=== PATIENT | female | born 1980 | race Caucasian/White ===

== ENCOUNTER 2023-05-20 20:34 | Inpatient (IN) | payer SELFPAY ==
[2023-05-20 21:52] VITALS: BMI 26.6
[2023-05-20 22:07] VITALS: BP 136/77; PULSE 71; RESP 14; TEMP 37.3; O2SAT 99
--- NOTE | 2023-05-20 22:51 | ED.GENADULT ---
HPI - General Adult General Chief complaint: Psychiatric Symptoms Stated complaint: manic episode, verbally aggressive, section 12 pd Time Seen by Provider: 05/20/23 20:45 History of Present Illness HPI narrative: The patient is a 42-year-old woman who was brought to the hospital by ambulance under a section 12. According to the patient's father the patient was diagnosed with bipolar disorder many years ago but has never been amenable to any kind of treatment. The patient was apparently born in this area but has lived a lot in [place]. According to the patient's the the patient came up from [place] to stay with him on 02/13/2023. The patient's father reports that this is not the 1st time the patient has come to stay with him in this area. Apparently the patient's father called DCF a few weeks this the patient's father was concerned about the patient's child. The patient has a 7-year-old child who came with her from [place] to stay at the father's. The father reports that he felt that the patient was exhibiting a lot of inappropriate parenting and he contacted DCF. Apparently DCF attempted to evaluate the situation a few times and the patient refused to cooperate. Ultimately DCF arrived at the father's apartment a few days ago with police officers and the child was removed from the house. Apparently the patient became quite agitated and had to be put in handcuffs by police says the child was removed. Apparently there was a court hearing yesterday at which the patient also became quite agitated. The outcome of the court hearing was to confirm the removal of the child. Tonight the patient's father called 911 because the patient became severely agitated at home and was behaving in a very frightening manner towards the father. Police arrived. The patient apparently was agitated and seemed paranoid and delusional. Police therefore brought the patient to the hospital on a section 12. The patient states that her father is a manipulative narcissist related DCF into taking her child away. She says that she was told that the court hearing yesterday that she would have your child returned to her on Monday. The patient says that she refuses vaccines on yarsani grounds. She describes herself as ?Herbrew. She likewise refuses phlebotomy She denies fever, sweats, chills or any other symptoms of illness. She denies any drug or alcohol use. Related Data Allergies Allergy/AdvReac Type Severity Reaction Status Date / Time No Known Allergies Allergy Verified 05/20/23 23:06 Review of Systems Review of Systems: Yes all other systems are reviewed and are negative [facility] Social History Social History Advance Directives: No Advance Directives Information Provided: No Physical Exam ED Vital Signs: Vital Signs - 24 hr 05/20/23 22:07 Temperature 99.1 F Pulse Rate 71 Respiratory Rate 14 Blood Pressure 136/77 Pulse Oximetry 99 Oxygen Delivery Method Room Air BMI result Body Mass Index 26.6 Const Other: The patient is awake and alert. She perseverates about her father and DCF and the police. She was calm. HENMT Other: Face symmetrical. Mucous membranes moist. Eyes Other: Pupils are round equal, conjunctivae are clear. Neck Other: Moving her neck easily Resp Effort & Inspection: normal respiratory effort Auscultation: clear to auscultation bilaterally Cardio Rate: regular rate Rhythm: regular rhythm Heart sounds: S1 normal heart sound present and S2 normal heart sound present GI Other: Abdomen is flat soft and nontender Skin Other: The skin is dry and unremarkable Neuro Other: The patient is awake and alert. She has an intense affect with some pressured speech but her cranial nerves are intact and she moves her extremities symmetrically. No focal neurological deficit. Extrem Other: No peripheral edema Psych Other: The patient is calm. She perseverates about her father and the courts and DCF and the police conspiring against her. Medical Decision Making Medical Decision Making MDM Narrative: The patient is a 42-year-old who comes to the emergency room on a section 12. She recently had her child taken from her by [facility]. I believe [facility] was concerned about the patient's mental health interfering with her ability to parent. Tonight the patient's father called 911 because the patient was agitated and threatening. Here the patient is calm but perseverates about persecution. Patient seems medically stable. I do not have any reason to suspect that there is any underlying acute medical process and I do not have any impression that the patient is intoxicated or under the influence of any substances. The patient is refusing phlebotomy. Her vital signs are stable. She does not seem toxic in any way. I think she is medically clear for a crisis evaluation and disposition. Lab Data Labs: Lab Results 05/20/23 Range/Units 23:23 Urine Opiates Screen Not Detected (Not Detect) Urine Fentanyl Screen Not Detected (Not Detect) Ur Barbiturates Screen Not Detected (Not Detect) Ur Phencyclidine Scrn Not Detected (Not Detect) Ur Amphetamines Screen Not Detected (Not Detect) U Benzodiazepines Scrn Not Detected (Not Detect) Urine Cocaine Screen Not Detected (Not Detect) U Marijuana (THC) Screen Not Detected (Not Detect) Discharge Plan Discharge Clinical Impression: Paranoid behavior Patient Disposition: Still a Patient Interventions: Babbitt-Suicide Risk Severity Scale Last Done: 05/20/23 23:38
[2023-05-20 23:37] LABS: Amphetamine Screen Urine Not Detected (Not Detect); Barbiturates, Urine Not Detected (Not Detect); Benzodiazepines Screen Urine Not Detected (Not Detect); Cannabinoid Screen Urine Not Detected (Not Detect); Cocaine Screen Urine Not Detected (Not Detect); Fentanyl, urine Not Detected (Not Detect); Opiate Screen Urine Not Detected (Not Detect); Phencyclidine Screen Urine Not Detected (Not Detect)
[2023-05-21 01:44] LABS: UPreg QC Valid YES; Urine Pregnancy NEGATIVE (NEGATIVE)
[2023-05-21 05:14] VITALS: BP 117/71; PULSE 70; RESP 16; TEMP 37.4; O2SAT 98
--- NOTE | 2023-05-21 11:31 | PC.NURSE ---
no si/hi. asked to be changed to confidential in profile- registration changed her settings in computer. aox4. munira mann.
--- NOTE | 2023-05-21 12:30 | PC.NURSE ---
pt brought to pod. no distress. walks well. +CMS. breathing well.
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
--- NOTE | 2023-05-21 13:16 | PC.NURSE ---
Pt also verbalizes that she does not believe in medications for mental disorders . she states that the MMR vaccine and medications for mental disorders gave her relative autism
--- NOTE | 2023-05-21 13:22 | MHC.CARE ---
Patient's father is Awilda Cowanogh, or [phone]
--- NOTE | 2023-05-21 15:29 | PC.NURSE ---
Pt approached this RN to request to leave. This RN educated the patient that she cannot leave because she is on a Section 12a. Pt stated to this RN that she is being held against her will and that she does not consent to being here. This RN attempted to educate patient about a section 12a however the patient interjected and stated the section 12 article 3 is just an article and not a law so you cannot hold me here, it is just a suggestion . This Rn attempted to speak again but patient once again interjected stating you obviously don't care about my son or my safety and then returned to her room
--- NOTE | 2023-05-21 17:54 | PC.NURSE ---
this RN attempted to approach patient about drawing blood work, patient adamantly refused stating that it was against her alevism as a Korean
--- NOTE | 2023-05-21 19:24 | PC.NURSE ---
patient appears to remain at rest presently respirations are even and unlbored presently patient appears in no distress.
[2023-05-21 20:15] VITALS: BP 117/84; PULSE 83; RESP 20; TEMP 37.3; O2SAT 100
[2023-05-22 05:57] VITALS: BP 114/72; PULSE 96; RESP 15; TEMP 36.8; O2SAT 94
[2023-05-22 07:35] VITALS: RESP 16
--- NOTE | 2023-05-22 07:37 | PC.NURSE ---
PT IS A/O NO SOB/TIARRA NOTED SPEAKS IN FULL SENTENCES. PT WAS AMB (I) GAIT STEADY TO BATHROOM AND BTB. WILL CONTINUE TO MONITOR.
--- NOTE | 2023-05-22 08:00 | PC.NURSE ---
PT ADAMANTLY REFUSED TO HAVE LAB DRAWN STATING ORIENTAL ORTHODOX BELIEFS(DANISH) IS AGAINST ANY LAB DRAWS. PT STATES THAT SHE WANTS TO GET A RESTRAINING ORDER ON DCF BECAUSE THEY TOOK AWAY HER SON. WILL CONTINUE TO MONITOR.
--- NOTE | 2023-05-22 08:50 | PC.NURSE ---
PT'S MOTHER CALLED. PT REFUSED TO SPEAK WITH HER MOTHER STATING THAT SHE IS CUTTING THEM OFF .
[2023-05-22 09:28] VITALS: BP 141/96; PULSE 78; TEMP 37.6; O2SAT 97
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
[2023-05-22 16:33] VITALS: BP 136/87; PULSE 64; RESP 16; TEMP 37.6; O2SAT 97
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
[2023-05-22 19:50] VITALS: BP 120/77; PULSE 75; TEMP 36.6; O2SAT 100
[2023-05-23 08:30] VITALS: BP 133/80; PULSE 112; RESP 18; TEMP 36.7; O2SAT 100
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
[2023-05-23 18:20] VITALS: BP 122/74; PULSE 61; RESP 16; TEMP 37.2; O2SAT 98
[2023-05-24 08:08] VITALS: BP 114/61; PULSE 57; RESP 16; TEMP 37.1; O2SAT 99
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
[2023-05-24 16:44] VITALS: BP 144/75; PULSE 63; RESP 16; TEMP 37.3; O2SAT 97
[2023-05-25 08:16] VITALS: BP 115/79; PULSE 75; RESP 16; TEMP 37.2; O2SAT 99
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
== END 2023-05-25 11:53 | disposition other institution (70) | DRG 880 ==
LOC: HO.ED 05-22 14:04 → HO.PM5 05-22 14:30
PROVIDERS: Admitting Provider Psychiatry & Neurology Psychiatry; Emergency Provider Emergency Medicine; Visit Provider Psychiatry & Neurology Psychiatry
DX: F43.0 Acute stress reaction (principal); F43.10 Post-traumatic stress disorder, unspecified; F17.210 Nicotine dependence, cigarettes, uncomplicated; Z71.6 Tobacco abuse counseling
CPT/HCPCS: 80307; 81025; 99285; S9485

== ENCOUNTER → 2023-05-22 14:21 | Outpatient (BNV) | payer SELFPAY | PROVIDERS: Admitting Provider Psychiatry & Neurology Psychiatry; Emergency Provider Emergency Medicine; Visit Provider Registered Nurse | DX: F43.0 Acute stress reaction (principal); F43.11 Post-traumatic stress disorder, acute | CPT/HCPCS: 90792; 99231; 99238 ==

== ENCOUNTER 2023-07-26 15:37 | Inpatient (IN) | payer MEDICAID, OTHER, SELFPAY ==
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
[2023-07-26 16:19] VITALS: BP 125/96; BP 142/82; PULSE 77; PULSE 80; RESP 18; TEMP 36.9; O2SAT 95; O2SAT 99; BMI 22.0
[2023-07-26 16:32] LABS: Appearance Urine Turbid; Color Urine Dark Yellow; Glucose Urine UA Negative (Negative); Leukocyte Esterase Urine Small (1+) (Negative); Nitrite Urine Negative (Negative); PH 5.5 (5.0-9.0); Specific Gravity - Urine >= 1.030 (1.005-1.025); UMIC TRIGGER UACC YES; Urine Blood Large (3+) (Negative); Urine Ketones 15 mg/dL (Negative); Urine Protein 100 (2+) mg/dL (Neg-Trace)
[2023-07-26 16:40] LABS: Amphetamine Screen Urine Not Detected (Not Detect); Barbiturates, Urine Not Detected (Not Detect); Benzodiazepines Screen Urine Not Detected (Not Detect); Buprenorphine Scr Not Detected (Not Detect); Cannabinoid Screen Urine Not Detected (Not Detect); Cocaine Screen Urine Not Detected (Not Detect); Fentanyl, urine Not Detected (Not Detect); Methadone Screen, Urine Not Detected (Not Detect); Opiate Screen Urine Not Detected (Not Detect); Oxycodone Screen Urine Not Detected (Not Detect); Phencyclidine Screen Urine Not Detected (Not Detect)
[2023-07-26 16:44] VITALS: BP 125/96; PULSE 77; RESP 18; TEMP 36.9; O2SAT 99
[2023-07-26 16:52] LABS: Bacteria Urine 4+ (None Seen); RBC Urine >20 /HPF (0-2); UACC Culture Trigger YES; WBC Urine >50 /HPF (0-5)
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
--- NOTE | 2023-07-26 19:26 | PC.NURSE ---
patient somewhat withdrawn, seems appreciative for meals and assistance, periodic interactions seem reality based, patient appears in no distress.
--- NOTE | 2023-07-27 03:47 | PC.NURSE ---
Took over care from RN Carmen, pt sleeping at this time, no sign of distress.
[2023-07-27 06:21] VITALS: BP 118/58; PULSE 75; RESP 18; TEMP 37.1; O2SAT 98
[2023-07-27 08:16] VITALS: BP 119/78; PULSE 81; RESP 16; TEMP 37.2; O2SAT 97
--- NOTE | 2023-07-27 09:08 | PC.NURSE ---
pt states hoahaoism objection to blood work
--- NOTE | 2023-07-27 12:37 | PC.NURSE ---
pt refused covid test.
[2023-07-27 13:46] LABS: COVID-19 Test Negative (Negative); IDNOW Serial# 152EDE1D
[2023-07-27 14:59] VITALS: BP 119/81; PULSE 76; RESP 20; TEMP 37.1; O2SAT 97
[2023-07-27 15:18] VITALS: BMI 23.7
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
[2023-07-27 19:25] VITALS: BP 123/81; PULSE 68; RESP 16; TEMP 37.4; O2SAT 98
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
[2023-07-28 07:28] VITALS: BP 103/72; PULSE 74; RESP 16; TEMP 37.2; O2SAT 97
--- NOTE | 2023-07-28 08:02 | PC.NURSE ---
Pt refused labs. Provider aware.
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
[2023-07-28 20:45] VITALS: BP 135/85; PULSE 66; RESP 14; TEMP 37; O2SAT 97
[2023-07-29 07:20] VITALS: BP 131/74; PULSE 83; RESP 14; TEMP 37.3; O2SAT 100
--- NOTE | 2023-07-29 09:08 | HO.PSYCHPN ---
Subjective Subjective Date of Service: 07/29/23 Reason For Visit: PTSD, paranoid behavior Subjective Notes: Conditional Voluntary and 3 Day Interim History: Patient was seen and discussed in rounds today. Records and plans were reviewed. She has been refusing meds. Refusing labs. Not attending any groups. Affect is expansive. Had some difficulty falling asleep but once she was sleep she slept through. No complaints. No dangerous behaviors. No changes were made today Review of Systems Review of Systems Yes all other systems are reviewed and are negative Mental Status Exam Mental Status Exam Patient Appearance: Disheveled and Unkempt Patient Orientation: Person, Place and Situation Level of Consciousness: Awake and Restless Patient Behavior: Hyperactive, Restless and Anxious Mood Description: Suspicious, Anxious and Labile Affect Description: Labile Patient Cognition Impaired: Yes Ability to Follow Directions: Good Speech Pattern: Perseverating, Spontaneous Speech and Pressured Delusions: Paranoid Ideation Thought Process: Distracted and Rumination Thought Content: positive for Preoccupation and positive for Loose Associations Judgement: Poor Diagnostics Vital Signs (24Hr): Vital Signs - 24 hr 07/28/23 20:45 07/29/23 07:20 Temperature 98.6 F 99.2 F Pulse Rate 66 83 Respiratory Rate 14 14 Blood Pressure 135/85 131/74 Pulse Oximetry 97 100 Oxygen Delivery Method Room Air Room Air BMI result Body Mass Index 23.7 Labs Labs: Laboratory Results - last 48 hr 07/27/23 13:21 COVID-19 (LAUREEN) Negative COVID-19 Clin Com See Note Medications Medications Current Medications Al Hydroxide/Mg Hydroxide (Magnesium Hydrox/Alum Hydrox 30 Ml Oral.Susp) 30 ml PO Q6H PRN PRN Reason: Heartburn/Nausea Hydroxyzine HCl (Hydroxyzine Hcl 25 Mg Tablet) 25 mg PO Q6H PRN PRN Reason: Anxiety Magnesium Hydroxide (Milk Of Magnesia 30 Ml Oral.Susp) 30 ml PO DAILY PRN PRN Reason: Constipation Trazodone HCl (Trazodone Hcl 50 Mg Tablet) 50 mg PO BEDTIME MRX1 PRN PRN Reason: Insomnia Allergies Allergies Allergy/AdvReac Type Severity Reaction Status Date / Time seafood Allergy Hives Verified 05/21/23 13:02 venom-wasp Allergy Anaphylaxis Verified 07/26/23 16:26 pork derived (porcine) AdvReac Unknown Verified 05/21/23 13:02 Assessment & Plan Assessment & Plan (1) PTSD (post-traumatic stress disorder): Status: Acute Code(s): F43.10 - Post-traumatic stress disorder, unspecified (2) Paranoid behavior: Status: Acute Code(s): F22 - Delusional disorders Plan admit to m3 on CV pt signed 3 day notice collect collateral 07/29/2023: Continue current regimen and plans Reason for continued inpatient stay Substantial Risk for: med/psych decompensation Time Spent With Patient Time: Total time managing care of this patient today ____ minutes.
[2023-07-29 20:00] VITALS: BP 119/76; PULSE 71; RESP 14; TEMP 37.2; O2SAT 98
[2023-07-30 08:00] VITALS: BP 131/85; PULSE 74; RESP 16; TEMP 37.1; O2SAT 97
[2023-07-30 08:06] LABS: MANUAL DIFF FLAG NO
[2023-07-30 08:12] LABS: Basophils Absolute Auto 0.1 X10*3/uL (0.0-0.2); Basophils Percent Auto 0.6 % (0-2); Eosinophils Absolute Auto 0.3 X10*3/uL (0.0-0.4); Eosinophils Percent Auto 2.9 % (0-4); Hematocrit 37.5 % (37.0-47.0); Hemoglobin 12.4 g/dl (12.0-16.0); Imm Gran Abs Auto 0.03 X10*3/uL (0.00-0.03); Imm Gran Pct Auto 0.3 % (0.0-0.4); Lymphocytes Absolute Auto 1.8 X10*3/uL (1.2-4.9); Lymphocytes Percent Auto 20.2 % (20-40); Mean Corpuscular HGB Conc 33.1 g/dl (31.0-35.0); Mean Corpuscular Hemoglobin 30.6 pg (27.0-33.0); Mean Corpuscular Volume 92.6 fL (80.0-98.0); Mean Platelet Volume 10.4 fL (9.4-12.3); Monocytes Absolute Auto 0.8 X10*3/uL (0.1-1.2); Monocytes Percent Auto 9.2 % (2-11); Neutrophils Absolute Auto 5.9 x10*3/uL (2.0-8.3); Neutrophils Percent Auto 66.8 % (45-73); Platelet Count 287 X10*3/uL (160-400); Red Blood Count 4.05 X10*6/uL (4.20-5.50); Red Cell Distribution Width 14.8 % (11.0-16.0); White Blood Count 8.8 X10*3/uL (4.8-10.8)
[2023-07-30 08:36] LABS: Alanine Aminotransferase 9 U/L (0-31); Albumin Level 4.1 g/dL (3.5-5.0); Alkaline Phosphatase 70 U/L (39-117); Anion Gap 11 (12-20); Aspartate Amino Transferase 12 U/L (5-31); Bilirubin Total 0.2 mg/dL (0.0-1.0); Blood Urea Nitrogen 17 mg/dL (9-16); Carbon Dioxide 24 mmol/L (22-29); Chloride 109 mmol/L (96-108); Cholesterol 183 mg/dL (<200); Creatinine Clr Calc Pharmacy 103.4; Estimated Glomerular Filt Rate > 60; Glucose Fasting 98 mg/dL (60-99); HDL Cholesterol 39 mg/dL (>40); LDL Cholesterol Calculated 128 mg/dL (<100); Potassium 4.1 mmol/L (3.3-5.1); Sodium 140 mmol/L (135-145); Total Protein 6.9 g/dL (6.5-8.0); Triglycerides 84 mg/dL (<150)
[2023-07-30 08:51] LABS: Thyroid Stimulating Hormone 2.29 uIU/mL (0.32-4.0)
[2023-07-30 09:07] LABS: Folate 5.7 ng/mL (> or = 4.0); Vitamin B12 408 pg/mL (200-900)
--- NOTE | 2023-07-30 09:15 | HO.PSYCHPN ---
Subjective Subjective Date of Service: 07/30/23 Reason For Visit: PTSD, paranoid behavior Subjective Notes: Conditional Voluntary and 3 Day Interim History: Patient was seen and discussed in rounds today. Records and plans were reviewed. She has been visible but continues to have depression and anxiety. Eating and sleeping well. She continues to have paranoid ideations. She talked at length about her younger child who is in DCF custody and her 19-year-old who is in the [employer] and is being deployed. She does not feel that she needs to be on any medications and continues to refuse. No SI. No changes were made today Review of Systems Review of Systems Yes all other systems are reviewed and are negative Mental Status Exam Mental Status Exam Narrative: In today's visit she is alert, oriented and pleasant. Normal speech. Good eye contact. Affect is appropriate and varied. No acute signs of psychosis. Reports of paranoia and possible delusions by staff. No SI. Cognitively is grossly intact. No abnormalities of movement. She is able to move all limbs. No abnormality of gait. Diagnostics Vital Signs (24Hr): Vital Signs - 24 hr 07/29/23 20:00 07/30/23 08:00 Temperature 98.9 F 98.7 F Pulse Rate 71 74 Respiratory Rate 14 16 Blood Pressure 119/76 131/85 Pulse Oximetry 98 97 Oxygen Delivery Method Room Air Room Air BMI result Body Mass Index 23.7 Labs 07/30/23 08:00 07/30/23 08:00 Labs: Laboratory Results - last 48 hr 07/30/23 08:00 WBC 8.8 RBC 4.05 L Hgb 12.4 Hct 37.5 MCV 92.6 MCH 30.6 MCHC 33.1 RDW 14.8 Plt Count 287 MPV 10.4 Immature Gran % (Auto) 0.3 Neut % (Auto) 66.8 Lymph % (Auto) 20.2 [place] % (Auto) 9.2 Eos % (Auto) 2.9 Baso % (Auto) 0.6 Lymph # (Auto) 1.8 [place] # (Auto) 0.8 Eos # (Auto) 0.3 Baso # (Auto) 0.1 Abs Immat Gran (auto) 0.03 Absolute Neuts (auto) 5.9 Absolute Nucleated RBC 0.000 Nucleated RBC % (auto) 0.0 Sodium 140 Potassium 4.1 Chloride 109 H Carbon Dioxide 24 Anion Gap 11 L BUN 17 H Creatinine 0.70 Estim Creat Clear Calc 103.4 Estimated GFR > 60 Fasting Glucose 98 Calcium 9.0 Total Bilirubin 0.2 AST 12 ALT 9 Alkaline Phosphatase 70 Total Protein 6.9 Albumin 4.1 Triglycerides 84 Cholesterol 183 LDL Cholesterol, Calc 128 H HDL Cholesterol 39 L Vitamin B12 408 Folate 5.7 TSH 2.29 Free T4 1.00 Medications Medications Current Medications Al Hydroxide/Mg Hydroxide (Magnesium Hydrox/Alum Hydrox 30 Ml Oral.Susp) 30 ml PO Q6H PRN PRN Reason: Heartburn/Nausea Hydroxyzine HCl (Hydroxyzine Hcl 25 Mg Tablet) 25 mg PO Q6H PRN PRN Reason: Anxiety Magnesium Hydroxide (Milk Of Magnesia 30 Ml Oral.Susp) 30 ml PO DAILY PRN PRN Reason: Constipation Trazodone HCl (Trazodone Hcl 50 Mg Tablet) 50 mg PO BEDTIME MRX1 PRN PRN Reason: Insomnia Allergies Allergies Allergy/AdvReac Type Severity Reaction Status Date / Time seafood Allergy Hives Verified 05/21/23 13:02 venom-wasp Allergy Anaphylaxis Verified 07/26/23 16:26 pork derived (porcine) AdvReac Unknown Verified 05/21/23 13:02 Assessment & Plan Assessment & Plan (1) PTSD (post-traumatic stress disorder): Status: Acute Code(s): F43.10 - Post-traumatic stress disorder, unspecified (2) Paranoid behavior: Status: Acute Code(s): F22 - Delusional disorders Plan admit to m3 on CV pt signed 3 day notice collect collateral 07/29/2023: Continue current regimen and plans 07/30/2023: Continue current regimen and plans Patient educated on: medication risk/benefits Reason for continued inpatient stay Substantial Risk for: med/psych decompensation Time Spent With Patient Time: Total time managing care of this patient today ____ minutes.
[2023-07-30 20:00] VITALS: BP 108/60; PULSE 67; RESP 16; TEMP 37.3; O2SAT 98
[2023-07-30] MEDS: hydrOXYzine HCL 25 MG TABLET PO (22:53)
[2023-07-31 07:45] VITALS: BP 122/71; PULSE 60; RESP 16; TEMP 36.8; O2SAT 97
--- NOTE | 2023-07-31 14:41 | HO.PSYCHPN ---
Subjective Subjective Date of Service: 07/31/23 Reason For Visit: PTSD, paranoid behavior Interim History: slightly pressured, grandiose delusions, protestant preoccupation. pleasant. denying she has mental illness, won't take medications. upset her son has been removed from her custody, on principle will not try medications to satisfy the concerns of those who believe she has mental illness. informs pt she will be offered medication but will not be forced medication at the moment. discuss 3-day notice, kay warning provided. per staff, 3-day up 08/01. paranoid, cheerful, bright. attending groups. loose, disorganized. believes automobile radio repairer and DCF are in on removing her child and that they in general sell and abuse kids. believes her son is a prophet. Mental Status Exam Mental Status Exam Narrative: alert, oriented and pleasant. slightly pressured speech, normal loudness. Good eye contact. Affect is somewhat hyper-intense and euphoric. paranoid and grandiose delusions. No SI/HI/AVH expressed. Cognitively is grossly intact. No abnormalities of movement. She is able to move all limbs. No abnormality of gait. Diagnostics Vital Signs (24Hr): Vital Signs - 24 hr 07/30/23 20:00 07/31/23 07:45 Temperature 99.1 F 98.3 F Pulse Rate 67 60 Respiratory Rate 16 16 Blood Pressure 108/60 122/71 Pulse Oximetry 98 97 Oxygen Delivery Method Room Air Room Air BMI result Body Mass Index 23.7 Labs 07/30/23 08:00 07/30/23 08:00 Labs: Laboratory Results - last 48 hr 07/30/23 08:00 WBC 8.8 RBC 4.05 L Hgb 12.4 Hct 37.5 MCV 92.6 MCH 30.6 MCHC 33.1 RDW 14.8 Plt Count 287 MPV 10.4 Immature Gran % (Auto) 0.3 Neut % (Auto) 66.8 Lymph % (Auto) 20.2 [place] % (Auto) 9.2 Eos % (Auto) 2.9 Baso % (Auto) 0.6 Lymph # (Auto) 1.8 [place] # (Auto) 0.8 Eos # (Auto) 0.3 Baso # (Auto) 0.1 Abs Immat Gran (auto) 0.03 Absolute Neuts (auto) 5.9 Absolute Nucleated RBC 0.000 Nucleated RBC % (auto) 0.0 Sodium 140 Potassium 4.1 Chloride 109 H Carbon Dioxide 24 Anion Gap 11 L BUN 17 H Creatinine 0.70 Estim Creat Clear Calc 103.4 Estimated GFR > 60 Fasting Glucose 98 Calcium 9.0 Total Bilirubin 0.2 AST 12 ALT 9 Alkaline Phosphatase 70 Total Protein 6.9 Albumin 4.1 Triglycerides 84 Cholesterol 183 LDL Cholesterol, Calc 128 H HDL Cholesterol 39 L Vitamin B12 408 Folate 5.7 TSH 2.29 Free T4 1.00 Medications Medications Current Medications Al Hydroxide/Mg Hydroxide (Magnesium Hydrox/Alum Hydrox 30 Ml Oral.Susp) 30 ml PO Q6H PRN PRN Reason: Heartburn/Nausea Hydroxyzine HCl (Hydroxyzine Hcl 25 Mg Tablet) 25 mg PO Q6H PRN PRN Reason: Anxiety Last Admin: 07/30/23 22:53 Dose: 25 mg Magnesium Hydroxide (Milk Of Magnesia 30 Ml Oral.Susp) 30 ml PO DAILY PRN PRN Reason: Constipation Olanzapine (Olanzapine 10 Mg Tablet) 10 mg PO BEDTIME FREDO Trazodone HCl (Trazodone Hcl 50 Mg Tablet) 50 mg PO BEDTIME MRX1 PRN PRN Reason: Insomnia Allergies Allergies Allergy/AdvReac Type Severity Reaction Status Date / Time seafood Allergy Hives Verified 05/21/23 13:02 venom-wasp Allergy Anaphylaxis Verified 07/26/23 16:26 pork derived (porcine) AdvReac Unknown Verified 05/21/23 13:02 Assessment & Plan Assessment & Plan (1) PTSD (post-traumatic stress disorder): Status: Acute Code(s): F43.10 - Post-traumatic stress disorder, unspecified (2) Paranoid behavior: Status: Acute Code(s): F22 - Delusional disorders Plan admit to m3 on CV pt signed 3 day notice collect collateral 07/29/2023: Continue current regimen and plans 07/30/2023: Continue current regimen and plans 07/30: offer olanzapine at HS. pt remains manic, with pressured speech, thought disorganization, paranoid and grandiose delusions. Reason for continued inpatient stay Substantial Risk for: inability to function Time Spent With Patient Time: Total time managing care of this patient today __35__ minutes.
[2023-07-31 20:00] VITALS: BP 124/60; PULSE 71; RESP 16; TEMP 37.7; O2SAT 97
[2023-07-31] MEDS: hydrOXYzine HCL 25 MG TABLET PO (22:26)
[2023-08-01 07:59] VITALS: BP 129/74; PULSE 68; RESP 16; TEMP 36.8; O2SAT 99
--- NOTE | 2023-08-01 10:34 | P.DS_ITS ---
DS: Providers Provider Date of Service: 08/01/23 Date of admission: 07/27/23 13:51 Primary care physician: None Physician DS: Diagnosis Discharge Diagnosis (1) PTSD (post-traumatic stress disorder): Status: Acute (2) Paranoid behavior: Status: Acute DS: Medications Discharge Medications Home Medications: Home Medications ?Medication ?Instructions ?Recorded ?Confirmed No Known Home Meds 05/21/23 07/26/23 Data Data Completed and Pending Completed studies during hospitalization [Text1]: 07/26/23 07/27/23 07/30/23 16:03 13:21 08:00 WBC 8.8 RBC 4.05 L Hgb 12.4 Hct 37.5 MCV 92.6 MCH 30.6 MCHC 33.1 RDW 14.8 Plt Count 287 MPV 10.4 Immature Gran % (Auto) 0.3 Neut % (Auto) 66.8 Lymph % (Auto) 20.2 [place] % (Auto) 9.2 Eos % (Auto) 2.9 Baso % (Auto) 0.6 Lymph # (Auto) 1.8 [place] # (Auto) 0.8 Eos # (Auto) 0.3 Baso # (Auto) 0.1 Abs Immat Gran (auto) 0.03 Absolute Neuts (auto) 5.9 Absolute Nucleated RBC 0.000 Nucleated RBC % (auto) 0.0 Sodium 140 Potassium 4.1 Chloride 109 H Carbon Dioxide 24 Anion Gap 11 L BUN 17 H Creatinine 0.70 Estim Creat Clear Calc 103.4 Estimated GFR > 60 Fasting Glucose 98 Calcium 9.0 Total Bilirubin 0.2 AST 12 ALT 9 Alkaline Phosphatase 70 Total Protein 6.9 Albumin 4.1 Triglycerides 84 Cholesterol 183 LDL Cholesterol, Calc 128 H HDL Cholesterol 39 L Vitamin B12 408 Folate 5.7 TSH 2.29 Free T4 1.00 Urine Color Dark Yellow Urine Appearance Turbid Urine pH 5.5 Ur Specific [place] >= 1.030 H Urine Protein 100 (2+) H Urine Glucose (UA) Negative Urine Ketones 15 Urine Blood Large (3+) H Urine Nitrite Negative Ur Leukocyte Esterase Small (1+) H Urine RBC >20 H Urine WBC >50 H Ur Squamous Epith Cells 11-20 Urine Bacteria 4+ Hyaline Casts 11-20 Urine Opiates Screen Not Detected Ur Buprenorphine Scrn Not Detected Ur Oxycodone Screen Not Detected Urine Methadone Screen Not Detected Urine Fentanyl Screen Not Detected Ur Barbiturates Screen Not Detected Ur Phencyclidine Scrn Not Detected Ur Amphetamines Screen Not Detected U Benzodiazepines Scrn Not Detected Urine Cocaine Screen Not Detected U Marijuana (THC) Screen Not Detected COVID-19 (LAUREEN) Negative COVID-19 Clin Com See Note 07/26/23 16:52 Urine clean catch - Urine ann top Urine Culture - Final DS: Summary Time Spent with Patient Time attestation: Total time managing care of this patient today ____ minutes. Discharge Plan Discharge Anticipated Discharge Date/Time: 08/02/23 11:30 Patient Disposition: [facility] Discharge Diagnosis: Manic Episode PTSD, Chronic Referrals: [facility] [Provider Group] - 1 Week Discharge Medications: No Action No Known Home Meds Diet: Advance to usual diet Activity on Discharge: As tolerated Stand Alone Forms: Patient Portal Discharge page Print Language: Iranian Care Plan Goals: achieve safety and stability in the outpatient treatment setting Health Concerns: none Plan of Treatment: establish a relationship with a therapist in the community for supportive psychotherapy. Assessment: not at imminent risk of harm to self or others
[2023-08-01 11:24] LABS: COVID-19 Test Negative (Negative); IDNOW Serial# 08D9AD1C
[2023-08-01 21:37] VITALS: BP 117/57; PULSE 69; RESP 16; TEMP 36.9; O2SAT 98
[2023-08-01] MEDS: hydrOXYzine HCL 25 MG TABLET PO (21:49)
[2023-08-02 07:44] VITALS: BP 114/60; PULSE 87; RESP 14; TEMP 36.9; O2SAT 98
[2023-08-02] MEDS: Divalproex Sodium ER 500 MG TAB.ER.24H PO ×2 (11:15→20:40)
[2023-08-02] MEDS: OLANZapine 5 MG TABLET PO (11:15)
--- NOTE | 2023-08-02 14:36 | HO.PSYCHPN ---
Subjective Subjective Date of Service: 08/01/23 Reason For Visit: PTSD, paranoid behavior Interim History: states she has no mental illness and declines to take medications. discussed need to discharge tomorrow, in that case. plan made for the same. Mental Status Exam Mental Status Exam Narrative: alert, oriented and pleasant. slightly pressured speech, normal loudness. Good eye contact. Affect is somewhat hyper-intense, labile, tearful. paranoid and grandiose delusions. mood sad because of what's happening to me and [place]. No SI/HI/AVH. Cognitively is grossly intact. No abnormalities of movement. She is able to move all limbs. No abnormality of gait. Diagnostics Vital Signs (24Hr): Vital Signs - 24 hr 08/01/23 21:37 08/02/23 07:44 Temperature 98.5 F 98.5 F Pulse Rate 69 87 Respiratory Rate 16 14 Blood Pressure 117/57 L 114/60 Pulse Oximetry 98 98 Oxygen Delivery Method Room Air Room Air BMI result Body Mass Index 23.7 Labs 07/30/23 08:00 07/30/23 08:00 Labs: Laboratory Results - last 48 hr 08/01/23 10:43 COVID-19 ([facility]EN) Negative COVID-19 Clin Com See Note Medications Medications Current Medications Al Hydroxide/Mg Hydroxide (Magnesium Hydrox/Alum Hydrox 30 Ml Oral.Susp) 30 ml PO Q6H PRN PRN Reason: Heartburn/Nausea Divalproex Sodium (Divalproex Sodium Er 500 Mg Tab.Er.24h) 500 mg PO BID [facility] Last Admin: 08/02/23 11:15 Dose: 500 mg Hydroxyzine HCl (Hydroxyzine Hcl 25 Mg Tablet) 25 mg PO Q6H PRN PRN Reason: Anxiety Last Admin: 08/01/23 21:49 Dose: 25 mg Magnesium Hydroxide (Milk Of Magnesia 30 Ml Oral.Susp) 30 ml PO DAILY PRN PRN Reason: Constipation Olanzapine (Olanzapine 10 Mg Tablet) 10 mg PO BEDTIME [facility] Last Admin: 08/01/23 21:28 Dose: Not Given Trazodone HCl (Trazodone Hcl 50 Mg Tablet) 50 mg PO BEDTIME MRX1 PRN PRN Reason: Insomnia Allergies Allergies Allergy/AdvReac Type Severity Reaction Status Date / Time seafood Allergy Hives Verified 05/21/23 13:02 venom-wasp Allergy Anaphylaxis Verified 07/26/23 16:26 pork derived (porcine) AdvReac Unknown Verified 05/21/23 13:02 Assessment & Plan Assessment & Plan (1) PTSD (post-traumatic stress disorder): Status: Acute Code(s): F43.10 - Post-traumatic stress disorder, unspecified (2) Paranoid behavior: Status: Acute Code(s): F22 - Delusional disorders Plan admit to m3 on CV pt signed 3 day notice collect collateral 07/29/2023: Continue current regimen and plans 07/30/2023: Continue current regimen and plans 07/30: offer olanzapine at HS. pt remains manic, with pressured speech, thought disorganization, paranoid and grandiose delusions. 07/31: refused medication last night. will discharge tomorrow, plan made. Reason for continued inpatient stay Substantial Risk for: inability to function Time Spent With Patient Time: Total time managing care of this patient today __35__ minutes.
--- NOTE | 2023-08-02 14:40 | HO.PSYCHPN ---
Subjective Subjective Date of Service: 08/02/23 Reason For Visit: PTSD, paranoid behavior Interim History: pt rescinded her 3-day notice and is asking to remain in the hospital. reports having had a dream last night where she was murdered after having left the hospital. discussed with pt that the only treatment we can offer her here is medications, and if she is not taking medications we cannot keep her here any longer (her primary concern appears to be housing right now). after much deliberation and denial of mental illness, pt agrees to take medication this morning. per staff, wants to remain in the hospital. Mental Status Exam Mental Status Exam Narrative: alert, oriented and pleasant. slightly pressured speech, normal loudness. Good eye contact. Affect is somewhat hyper-intense, non-labile. paranoid and grandiose delusions. mood not assessed. No SI/HI/AVH expressed. Cognitively is grossly intact. No abnormalities of movement. She is able to move all limbs. No abnormality of gait. Diagnostics Vital Signs (24Hr): Vital Signs - 24 hr 08/01/23 21:37 08/02/23 07:44 Temperature 98.5 F 98.5 F Pulse Rate 69 87 Respiratory Rate 16 14 Blood Pressure 117/57 L 114/60 Pulse Oximetry 98 98 Oxygen Delivery Method Room Air Room Air BMI result Body Mass Index 23.7 Labs 07/30/23 08:00 07/30/23 08:00 Labs: Laboratory Results - last 48 hr 08/01/23 10:43 COVID-19 ([facility]) Negative COVID-19 Clin Com See Note Medications Medications Current Medications Al Hydroxide/Mg Hydroxide (Magnesium Hydrox/Alum Hydrox 30 Ml Oral.Susp) 30 ml PO Q6H PRN PRN Reason: Heartburn/Nausea Divalproex Sodium (Divalproex Sodium Er 500 Mg Tab.Er.24h) 500 mg PO BID FREDO Last Admin: 08/02/23 11:15 Dose: 500 mg Hydroxyzine HCl (Hydroxyzine Hcl 25 Mg Tablet) 25 mg PO Q6H PRN PRN Reason: Anxiety Last Admin: 08/01/23 21:49 Dose: 25 mg Magnesium Hydroxide (Milk Of Magnesia 30 Ml Oral.Susp) 30 ml PO DAILY PRN PRN Reason: Constipation Olanzapine (Olanzapine 10 Mg Tablet) 10 mg PO BEDTIME FREDO Last Admin: 04/23/24 21:28 Dose: Not Given Trazodone HCl (Trazodone Hcl 50 Mg Tablet) 50 mg PO BEDTIME MRX1 PRN PRN Reason: Insomnia Allergies Allergies Allergy/AdvReac Type Severity Reaction Status Date / Time seafood Allergy Hives Verified 05/21/23 13:02 venom-wasp Allergy Anaphylaxis Verified 07/26/23 16:26 pork derived (porcine) AdvReac Unknown Verified 05/21/23 13:02 Assessment & Plan Assessment & Plan (1) PTSD (post-traumatic stress disorder): Status: Acute Code(s): F43.10 - Post-traumatic stress disorder, unspecified (2) Paranoid behavior: Status: Acute Code(s): F22 - Delusional disorders Plan admit to m3 on CV pt signed 3 day notice collect collateral 07/29/2023: Continue current regimen and plans 07/30/2023: Continue current regimen and plans 07/30: offer olanzapine at HS. pt remains manic, with pressured speech, thought disorganization, paranoid and grandiose delusions. 07/31: refused medication last night. will discharge tomorrow, plan made. 08/01: rescinded 3-day notice and asked to remain in hospital. stated willing to take meds, accepted VPA and zyprexa this morning. Reason for continued inpatient stay Substantial Risk for: inability to function Time Spent With Patient Time: Total time managing care of this patient today __35__ minutes.
[2023-08-02 20:00] VITALS: BP 125/73; PULSE 74; RESP 16; TEMP 36.6; O2SAT 97
[2023-08-02] MEDS: OLANZapine 10 MG TABLET PO (20:40)
[2023-08-03 07:00] VITALS: BMI 25.5
[2023-08-03] MEDS: Divalproex Sodium ER 500 MG TAB.ER.24H PO (08:34)
--- NOTE | 2023-08-03 13:16 | HO.PSYCHPN ---
Subjective Subjective Date of Service: 08/03/23 Reason For Visit: PTSD, paranoid behavior Interim History: more calm, less wordy, less intense. no s/e from medications. per staff, retracted 3-day yesterday. started meds. slept 8 hours. Mental Status Exam Mental Status Exam Narrative: alert, oriented and pleasant. normal speech. Good eye contact. Affect is normo-intense, non-labile. paranoid delusions. mood not assessed. No SI/HI/AVH expressed. Cognitively is grossly intact. No abnormalities of movement. She is able to move all limbs. No abnormality of gait. Diagnostics Vital Signs (24Hr): Vital Signs - 24 hr 08/02/23 20:00 Temperature 98 F Pulse Rate 74 Respiratory Rate 16 Blood Pressure 125/73 Pulse Oximetry 97 Oxygen Delivery Method Room Air BMI result Body Mass Index 23.7 Labs 07/30/23 08:00 07/30/23 08:00 Medications Medications Current Medications Al Hydroxide/Mg Hydroxide (Magnesium Hydrox/Alum Hydrox 30 Ml Oral.Susp) 30 ml PO Q6H PRN PRN Reason: Heartburn/Nausea Divalproex Sodium (Divalproex Sodium Er 500 Mg Tab.Er.24h) 1,000 mg PO BEDTIME FREDO Hydroxyzine HCl (Hydroxyzine Hcl 25 Mg Tablet) 25 mg PO Q6H PRN PRN Reason: Anxiety Last Admin: 08/01/23 21:49 Dose: 25 mg Magnesium Hydroxide (Milk Of Magnesia 30 Ml Oral.Susp) 30 ml PO DAILY PRN PRN Reason: Constipation Olanzapine (Olanzapine 5 Mg Tablet) 5 mg PO BEDTIME FREDO Trazodone HCl (Trazodone Hcl 50 Mg Tablet) 50 mg PO BEDTIME MRX1 PRN PRN Reason: Insomnia Allergies Allergies Allergy/AdvReac Type Severity Reaction Status Date / Time seafood Allergy Hives Verified 05/21/23 13:02 venom-wasp Allergy Anaphylaxis Verified 07/26/23 16:26 pork derived (porcine) AdvReac Unknown Verified 05/21/23 13:02 Assessment & Plan Assessment & Plan (1) Bipolar I disorder with guido: Status: Acute Code(s): F31.10 - Bipolar disorder, current episode manic without psychotic features, unspecified (2) PTSD (post-traumatic stress disorder): Status: Acute Code(s): F43.10 - Post-traumatic stress disorder, unspecified Plan admit to m3 on CV pt signed 3 day notice collect collateral 07/29/2023: Continue current regimen and plans 07/30/2023: Continue current regimen and plans 07/30: offer olanzapine at HS. pt remains manic, with pressured speech, thought disorganization, paranoid and grandiose delusions. 07/31: refused medication last night. will discharge tomorrow, plan made. 08/01: rescinded 3-day notice and asked to remain in hospital. stated willing to take meds, accepted VPA and zyprexa this morning. 08/02: med-compliant, notably slower today, calmer, not pressured or grandiose. no s/e. continue current mgmt. Reason for continued inpatient stay Substantial Risk for: inability to function and rapid decompensation Time Spent With Patient Time: Total time managing care of this patient today __25__ minutes.
[2023-08-03 13:30] VITALS: BP 120/68; PULSE 69; RESP 18; TEMP 38.1; O2SAT 98
[2023-08-03 15:28] LABS: COVID-19 Test Negative (Negative); IDNOW Serial# 58CA691E
[2023-08-03 20:00] VITALS: BP 134/63; PULSE 76; RESP 18; TEMP 37.1; O2SAT 99
[2023-08-03] MEDS: Divalproex Sodium ER 500 MG TAB.ER.24H 1000 MG PO (20:56)
[2023-08-03] MEDS: OLANZapine 5 MG TABLET PO (20:57)
[2023-08-04 07:25] VITALS: BP 116/55; PULSE 67; RESP 16; TEMP 36.7; O2SAT 95
--- NOTE | 2023-08-04 14:24 | HO.PSYCHPN ---
Subjective Subjective Date of Service: 08/04/23 Reason For Visit: PTSD, paranoid behavior Interim History: calm, cooperative, less pressured but still hyperverbal. feeling less groggy today than yesterday. amenable to continue current mgmt. per staff, taking meds. COVID NEG. eating well. Mental Status Exam Mental Status Exam Narrative: alert, oriented and pleasant. incr rate and amount of speech. Good eye contact. Affect is normo-intense, non-labile. no paranoid delusions expressed. mood not assessed. No SI/HI/AVH expressed. Cognitively is grossly intact. No abnormalities of movement. She is able to move all limbs. No abnormality of gait. Diagnostics Vital Signs (24Hr): Vital Signs - 24 hr 08/03/23 20:00 08/04/23 07:25 Temperature 98.7 F 98.0 F Pulse Rate 76 67 Respiratory Rate 18 16 Blood Pressure 134/63 116/55 L Pulse Oximetry 99 95 Oxygen Delivery Method Room Air Room Air BMI result Body Mass Index 25.5 Labs 07/30/23 08:00 07/30/23 08:00 Labs: Laboratory Results - last 48 hr 08/03/23 14:57 COVID-19 ([facility]) Negative COVID-19 Clin Com See Note Medications Medications Current Medications Al Hydroxide/Mg Hydroxide (Magnesium Hydrox/Alum Hydrox 30 Ml Oral.Susp) 30 ml PO Q6H PRN PRN Reason: Heartburn/Nausea Divalproex Sodium (Divalproex Sodium Er 500 Mg Tab.Er.24h) 1,000 mg PO BEDTIME FREDO Last Admin: 08/03/23 20:56 Dose: 1,000 mg Hydroxyzine HCl (Hydroxyzine Hcl 25 Mg Tablet) 25 mg PO Q6H PRN PRN Reason: Anxiety Last Admin: 08/01/23 21:49 Dose: 25 mg Magnesium Hydroxide (Milk Of Magnesia 30 Ml Oral.Susp) 30 ml PO DAILY PRN PRN Reason: Constipation Olanzapine (Olanzapine 5 Mg Tablet) 5 mg PO BEDTIME FREDO Last Admin: 08/03/23 20:57 Dose: 5 mg Trazodone HCl (Trazodone Hcl 50 Mg Tablet) 50 mg PO BEDTIME MRX1 PRN PRN Reason: Insomnia Allergies Allergies Allergy/AdvReac Type Severity Reaction Status Date / Time seafood Allergy Hives Verified 05/21/23 13:02 venom-wasp Allergy Anaphylaxis Verified 07/26/23 16:26 pork derived (porcine) AdvReac Unknown Verified 05/21/23 13:02 Assessment & Plan Assessment & Plan (1) Bipolar I disorder with guido: Status: Acute Code(s): F31.10 - Bipolar disorder, current episode manic without psychotic features, unspecified (2) PTSD (post-traumatic stress disorder): Status: Acute Code(s): F43.10 - Post-traumatic stress disorder, unspecified Plan admit to m3 on CV pt signed 3 day notice collect collateral 07/29/2023: Continue current regimen and plans 07/30/2023: Continue current regimen and plans 07/30: offer olanzapine at HS. pt remains manic, with pressured speech, thought disorganization, paranoid and grandiose delusions. 07/31: refused medication last night. will discharge tomorrow, plan made. 08/01: rescinded 3-day notice and asked to remain in hospital. stated willing to take meds, accepted VPA and zyprexa this morning. 08/02: med-compliant, notably slower today, calmer, not pressured or grandiose. no s/e. continue current mgmt. 08/03: more rapid speech today and more affective expression with zyprexa dose decrease last night. no paranoid delusions expressed, however. trending improved. continue current mgmt. titrate zyprexa to 7.5 mg over w/e as indicated. Reason for continued inpatient stay Substantial Risk for: inability to function and rapid decompensation Time Spent With Patient Time: Total time managing care of this patient today __25__ minutes.
[2023-08-04 19:15] VITALS: BP 129/64; PULSE 78; RESP 18; TEMP 38.2; O2SAT 97
[2023-08-04] MEDS: OLANZapine 5 MG TABLET PO (21:35)
[2023-08-04] MEDS: Divalproex Sodium ER 500 MG TAB.ER.24H 1000 MG PO (21:35)
[2023-08-04 21:54] VITALS: TEMP 37.1
[2023-08-05 09:20] VITALS: BP 129/60; PULSE 82; RESP 16; TEMP 37.2; O2SAT 100
--- NOTE | 2023-08-05 13:46 | HO.PSYCHPN ---
Subjective Subjective Date of Service: 08/05/23 Reason For Visit: PTSD, paranoid behavior Subjective Notes: Conditional Voluntary Interim History: Pt continues to present with congregational and paranoid delusions. She reports she is wrongly diagnosis with paranoia and she will not agree to that but knows has to continue tx. She reports sleeping well. She reports missing her son and worried that son is being hurt. Pt denies SI/HI. She has been visible on the unit, social with select peers. Review of Systems Review of Systems Constitutional : No Weight loss, No Fever, No Chills, No Night Sweats, No Fatigue, No Malaise ENT/Mouth : No Hearing loss, No Ear Pain, No Nasal Congestion, No Sinus Pain, No Hoarseness, No sore throat, No Rhinorrhea, No Swallowing Difficulty Eyes: No Eye Pain, No Swelling, No Redness, No Foreign Body, No Discharge, No Vision Changes Cardiovascular : No Chest Pain, No SOB, No Dyspnea on Exertion, No Orthopnea, No Edema, No Palpitations Respiratory : No Cough, No Sputum, No Wheezing, No Smoke Exposure, No Dyspnea Gastrointestinal : No Nausea, No Vomiting, No Diarrhea, No Constipation, No abdominal Pain, No Hematochezia, No Melena Genitourinary : no irregular bleeding, No Dysuria, No Urinary Frequency, No Hematuria, No Urinary Incontinence, No Urgency, No Flank Pain, No Urinary Flow Changes, No Hesitancy Musculoskeletal : No joint pain, No Myalgias, No Joint Swelling Skin : No Skin Lesions, No rash Neuro : No Weakness, No Numbness, No Paresthesias, No Loss of Consciousness, No Dizziness, No Headache Psych : No Anxiety/Panic, No Depression, patient denies SI or HI, angry that she was brought on a Section 12 Heme/Lymph: No Bruising, No Bleeding,No Lymphadenopathy Endocrine : No Polyuria, No Polydipsia, No Temperature Intolerance Yes all other systems are reviewed and are negative Mental Status Exam Mental Status Exam Narrative: alert, oriented and pleasant. incr rate and amount of speech. Good eye contact. Affect is normo-intense, non-labile. no paranoid delusions expressed. mood not assessed. No SI/HI/AVH expressed. Cognitively is grossly intact. No abnormalities of movement. She is able to move all limbs. No abnormality of gait. Diagnostics Vital Signs (24Hr): Vital Signs - 24 hr 08/04/23 19:15 08/04/23 21:54 08/05/23 09:20 Temperature 100.7 F H 98.7 F 98.9 F Pulse Rate 78 82 Respiratory Rate 18 16 Blood Pressure 129/64 129/60 Pulse Oximetry 97 100 Oxygen Delivery Method Room Air Room Air BMI result Body Mass Index 25.5 Labs 07/30/23 08:00 07/30/23 08:00 Labs: Laboratory Results - last 48 hr 08/03/23 14:57 COVID-19 ([facility]) Negative COVID-19 Clin Com See Note Medications Medications Current Medications Al Hydroxide/Mg Hydroxide (Magnesium Hydrox/Alum Hydrox 30 Ml Oral.Susp) 30 ml PO Q6H PRN PRN Reason: Heartburn/Nausea Divalproex Sodium (Divalproex Sodium Er 500 Mg Tab.Er.24h) 1,000 mg PO BEDTIME FREDO Last Admin: 08/04/23 21:35 Dose: 1,000 mg Hydroxyzine HCl (Hydroxyzine Hcl 25 Mg Tablet) 25 mg PO Q6H PRN PRN Reason: Anxiety Last Admin: 08/01/23 21:49 Dose: 25 mg Magnesium Hydroxide (Milk Of Magnesia 30 Ml Oral.Susp) 30 ml PO DAILY PRN PRN Reason: Constipation Olanzapine (Olanzapine 5 Mg Tablet) 5 mg PO BEDTIME FREDO Last Admin: 08/04/23 21:35 Dose: 5 mg Trazodone HCl (Trazodone Hcl 50 Mg Tablet) 50 mg PO BEDTIME MRX1 PRN PRN Reason: Insomnia Allergies Allergies Allergy/AdvReac Type Severity Reaction Status Date / Time seafood Allergy Hives Verified 05/21/23 13:02 venom-wasp Allergy Anaphylaxis Verified 07/26/23 16:26 pork derived (porcine) AdvReac Unknown Verified 05/21/23 13:02 Assessment & Plan Assessment & Plan (1) Bipolar I disorder with guido: Status: Acute Code(s): F31.10 - Bipolar disorder, current episode manic without psychotic features, unspecified (2) PTSD (post-traumatic stress disorder): Status: Acute Code(s): F43.10 - Post-traumatic stress disorder, unspecified Plan admit to m3 on CV pt signed 3 day notice collect collateral 07/29/2023: Continue current regimen and plans 07/30/2023: Continue current regimen and plans 07/30: offer olanzapine at HS. pt remains manic, with pressured speech, thought disorganization, paranoid and grandiose delusions. 07/31: refused medication last night. will discharge tomorrow, plan made. 08/01: rescinded 3-day notice and asked to remain in hospital. stated willing to take meds, accepted VPA and zyprexa this morning. 08/02: med-compliant, notably slower today, calmer, not pressured or grandiose. no s/e. continue current mgmt. 08/03: more rapid speech today and more affective expression with zyprexa dose decrease last night. no paranoid delusions expressed, however. trending improved. continue current mgmt. titrate zyprexa to 7.5 mg over w/e as indicated. 08/04 continue tx. Reason for continued inpatient stay Substantial Risk for: inability to function Time Spent With Patient Time: Total time managing care of this patient today ____ minutes.
[2023-08-05 20:00] VITALS: BP 121/57; PULSE 77; RESP 16; TEMP 37.6; O2SAT 97
[2023-08-05] MEDS: Divalproex Sodium ER 500 MG TAB.ER.24H 1000 MG PO (20:58)
[2023-08-05] MEDS: OLANZapine 5 MG TABLET PO (20:58)
[2023-08-06 07:40] VITALS: BP 121/64; PULSE 65; RESP 18; TEMP 36.9; O2SAT 97
--- NOTE | 2023-08-06 14:54 | HO.PSYCHPN ---
Subjective Subjective Date of Service: 08/06/23 Reason For Visit: PTSD, paranoid behavior Subjective Notes: Conditional Voluntary Interim History: Pt slept most of the night. Pt continues to present with adventism and paranoid delusions. She reports she is wrongly diagnosis with paranoia and she will not agree to that but knows has to continue tx. She reports sleeping well. She reports missing her son and worried that son is being hurt. Pt denies SI/HI. She has been visible on the unit, social with select peers. Review of Systems Review of Systems Constitutional : No Weight loss, No Fever, No Chills, No Night Sweats, No Fatigue, No Malaise ENT/Mouth : No Hearing loss, No Ear Pain, No Nasal Congestion, No Sinus Pain, No Hoarseness, No sore throat, No Rhinorrhea, No Swallowing Difficulty Eyes: No Eye Pain, No Swelling, No Redness, No Foreign Body, No Discharge, No Vision Changes Cardiovascular : No Chest Pain, No SOB, No Dyspnea on Exertion, No Orthopnea, No Edema, No Palpitations Respiratory : No Cough, No Sputum, No Wheezing, No Smoke Exposure, No Dyspnea Gastrointestinal : No Nausea, No Vomiting, No Diarrhea, No Constipation, No abdominal Pain, No Hematochezia, No Melena Genitourinary : no irregular bleeding, No Dysuria, No Urinary Frequency, No Hematuria, No Urinary Incontinence, No Urgency, No Flank Pain, No Urinary Flow Changes, No Hesitancy Musculoskeletal : No joint pain, No Myalgias, No Joint Swelling Skin : No Skin Lesions, No rash Neuro : No Weakness, No Numbness, No Paresthesias, No Loss of Consciousness, No Dizziness, No Headache Psych : No Anxiety/Panic, No Depression, patient denies SI or HI, angry that she was brought on a Section 12 Heme/Lymph: No Bruising, No Bleeding,No Lymphadenopathy Endocrine : No Polyuria, No Polydipsia, No Temperature Intolerance Yes all other systems are reviewed and are negative Mental Status Exam Mental Status Exam Narrative: alert, oriented and pleasant. incr rate and amount of speech. Good eye contact. Affect is normo-intense, non-labile. no paranoid delusions expressed. mood not assessed. No SI/HI/AVH expressed. Cognitively is grossly intact. No abnormalities of movement. She is able to move all limbs. No abnormality of gait. Diagnostics Vital Signs (24Hr): Vital Signs - 24 hr 08/05/23 20:00 08/06/23 07:40 Temperature 99.6 F 98.5 F Pulse Rate 77 65 Respiratory Rate 16 18 Blood Pressure 121/57 L 121/64 Pulse Oximetry 97 97 Oxygen Delivery Method Room Air Room Air BMI result Body Mass Index 25.5 Labs 07/30/23 08:00 07/30/23 08:00 Medications Medications Current Medications Al Hydroxide/Mg Hydroxide (Magnesium Hydrox/Alum Hydrox 30 Ml Oral.Susp) 30 ml PO Q6H PRN PRN Reason: Heartburn/Nausea Divalproex Sodium (Divalproex Sodium Er 500 Mg Tab.Er.24h) 1,000 mg PO BEDTIME FREDO Last Admin: 08/05/23 20:58 Dose: 1,000 mg Hydroxyzine HCl (Hydroxyzine Hcl 25 Mg Tablet) 25 mg PO Q6H PRN PRN Reason: Anxiety Last Admin: 08/01/23 21:49 Dose: 25 mg Magnesium Hydroxide (Milk Of Magnesia 30 Ml Oral.Susp) 30 ml PO DAILY PRN PRN Reason: Constipation Olanzapine (Olanzapine 5 Mg Tablet) 5 mg PO BEDTIME FREDO Last Admin: 08/05/23 20:58 Dose: 5 mg Trazodone HCl (Trazodone Hcl 50 Mg Tablet) 50 mg PO BEDTIME MRX1 PRN PRN Reason: Insomnia Allergies Allergies Allergy/AdvReac Type Severity Reaction Status Date / Time seafood Allergy Hives Verified 05/21/23 13:02 venom-wasp Allergy Anaphylaxis Verified 07/26/23 16:26 pork derived (porcine) AdvReac Unknown Verified 05/21/23 13:02 Assessment & Plan Assessment & Plan (1) Bipolar I disorder with guido: Status: Acute Code(s): F31.10 - Bipolar disorder, current episode manic without psychotic features, unspecified (2) PTSD (post-traumatic stress disorder): Status: Acute Code(s): F43.10 - Post-traumatic stress disorder, unspecified Plan admit to m3 on CV pt signed 3 day notice collect collateral 07/29/2023: Continue current regimen and plans 07/30/2023: Continue current regimen and plans 07/30: offer olanzapine at HS. pt remains manic, with pressured speech, thought disorganization, paranoid and grandiose delusions. 07/31: refused medication last night. will discharge tomorrow, plan made. 08/01: rescinded 3-day notice and asked to remain in hospital. stated willing to take meds, accepted VPA and zyprexa this morning. 08/02: med-compliant, notably slower today, calmer, not pressured or grandiose. no s/e. continue current mgmt. 08/03: more rapid speech today and more affective expression with zyprexa dose decrease last night. no paranoid delusions expressed, however. trending improved. continue current mgmt. titrate zyprexa to 7.5 mg over w/e as indicated. 08/04 continue tx 08/05 continue tx Reason for continued inpatient stay Substantial Risk for: inability to function Time Spent With Patient Time: Total time managing care of this patient today ____ minutes.
[2023-08-06 20:00] VITALS: BP 135/69; PULSE 83; RESP 16; TEMP 36.9; O2SAT 99
[2023-08-06] MEDS: OLANZapine 5 MG TABLET PO (20:13)
[2023-08-06] MEDS: Divalproex Sodium ER 500 MG TAB.ER.24H 1000 MG PO (20:13)
[2023-08-07 07:40] VITALS: BP 117/59; PULSE 62; RESP 16; TEMP 36.4; O2SAT 97
--- NOTE | 2023-08-07 13:39 | HO.PSYCHPN ---
Subjective Subjective Date of Service: 08/07/23 Reason For Visit: PTSD, paranoid behavior Interim History: calm, cooperative. less pressured, not grandiose. focused on getting her son back and getting back down to [place] for a job she believes is being opened for her. agreeable to check labs tomorrow night. per staff, attending groups. anxious. delusional. tangential. slept 8 hours. taking meds. developed B/L 1+ pitting edema in the LE. Mental Status Exam Mental Status Exam Narrative: alert, oriented and pleasant. incr rate and amount of speech. Good eye contact. Affect is normo-intense, non-labile. no paranoid delusions expressed. mood not assessed. No SI/HI/AVH expressed. Cognitively is grossly intact. No abnormalities of movement. She is able to move all limbs. No abnormality of gait. Diagnostics Vital Signs (24Hr): Vital Signs - 24 hr 08/06/23 20:00 08/07/23 07:40 Temperature 98.5 F 97.6 F Pulse Rate 83 62 Respiratory Rate 16 16 Blood Pressure 135/69 117/59 L Pulse Oximetry 99 97 Oxygen Delivery Method Room Air Room Air BMI result Body Mass Index 25.5 Labs 07/30/23 08:00 07/30/23 08:00 Medications Medications Current Medications Al Hydroxide/Mg Hydroxide (Magnesium Hydrox/Alum Hydrox 30 Ml Oral.Susp) 30 ml PO Q6H PRN PRN Reason: Heartburn/Nausea Divalproex Sodium (Divalproex Sodium Er 500 Mg Tab.Er.24h) 1,000 mg PO BEDTIME FREDO Last Admin: 08/06/23 20:13 Dose: 1,000 mg Hydroxyzine HCl (Hydroxyzine Hcl 25 Mg Tablet) 25 mg PO Q6H PRN PRN Reason: Anxiety Last Admin: 08/01/23 21:49 Dose: 25 mg Magnesium Hydroxide (Milk Of Magnesia 30 Ml Oral.Susp) 30 ml PO DAILY PRN PRN Reason: Constipation Olanzapine (Olanzapine 5 Mg Tablet) 5 mg PO BEDTIME FREDO Last Admin: 08/06/23 20:13 Dose: 5 mg Trazodone HCl (Trazodone Hcl 50 Mg Tablet) 50 mg PO BEDTIME MRX1 PRN PRN Reason: Insomnia Allergies Allergies Allergy/AdvReac Type Severity Reaction Status Date / Time seafood Allergy Hives Verified 05/21/23 13:02 venom-wasp Allergy Anaphylaxis Verified 07/26/23 16:26 pork derived (porcine) AdvReac Unknown Verified 05/21/23 13:02 Assessment & Plan Assessment & Plan (1) Bipolar I disorder with guido: Status: Acute Code(s): F31.10 - Bipolar disorder, current episode manic without psychotic features, unspecified (2) PTSD (post-traumatic stress disorder): Status: Acute Code(s): F43.10 - Post-traumatic stress disorder, unspecified Plan admit to m3 on CV pt signed 3 day notice collect collateral 07/29/2023: Continue current regimen and plans 07/30/2023: Continue current regimen and plans 07/30: offer olanzapine at HS. pt remains manic, with pressured speech, thought disorganization, paranoid and grandiose delusions. 07/31: refused medication last night. will discharge tomorrow, plan made. 08/01: rescinded 3-day notice and asked to remain in hospital. stated willing to take meds, accepted VPA and zyprexa this morning. 08/02: med-compliant, notably slower today, calmer, not pressured or grandiose. no s/e. continue current mgmt. 08/03: more rapid speech today and more affective expression with zyprexa dose decrease last night. no paranoid delusions expressed, however. trending improved. continue current mgmt. titrate zyprexa to 7.5 mg over w/e as indicated. 08/04 continue tx 08/05 continue tx 08/06: improved guido Sx. check labs tomorrow night. Reason for continued inpatient stay Substantial Risk for: inability to function and rapid decompensation Time Spent With Patient Time: Total time managing care of this patient today __25__ minutes.
[2023-08-07 20:00] VITALS: BP 123/71; PULSE 83; RESP 16; TEMP 36.4; O2SAT 99
[2023-08-07] MEDS: OLANZapine 5 MG TABLET PO (20:12)
[2023-08-07] MEDS: Divalproex Sodium ER 500 MG TAB.ER.24H 1000 MG PO (20:12)
[2023-08-08 08:00] VITALS: BP 131/78; PULSE 74; RESP 18; TEMP 36.8; O2SAT 99
--- NOTE | 2023-08-08 13:38 | HO.PSYCHPN ---
Subjective Subjective Date of Service: 08/08/23 Reason For Visit: PTSD, paranoid behavior Interim History: remains calm, cooperative, not pressured. focused on getting her son back and housing issues, appropriately. per staff, c/o depression and high anxiety. attending groups. taking meds. slept about 7 hours. Mental Status Exam Mental Status Exam Narrative: alert, oriented and pleasant. nml rate and amount of speech. Good eye contact. Affect is normo-intense, non-labile. no paranoid delusions expressed. mood not assessed. No SI/HI/AVH expressed. Cognitively is grossly intact. No abnormalities of movement. She is able to move all limbs. No abnormality of gait. Diagnostics Vital Signs (24Hr): Vital Signs - 24 hr 08/07/23 20:00 08/08/23 08:00 Temperature 97.6 F 98.2 F Pulse Rate 83 74 Respiratory Rate 16 18 Blood Pressure 123/71 131/78 Pulse Oximetry 99 99 Oxygen Delivery Method Room Air Room Air BMI result Body Mass Index 25.5 Labs 07/30/23 08:00 07/30/23 08:00 Medications Medications Current Medications Al Hydroxide/Mg Hydroxide (Magnesium Hydrox/Alum Hydrox 30 Ml Oral.Susp) 30 ml PO Q6H PRN PRN Reason: Heartburn/Nausea Divalproex Sodium (Divalproex Sodium Er 500 Mg Tab.Er.24h) 1,000 mg PO BEDTIME FREDO Last Admin: 08/07/23 20:12 Dose: 1,000 mg Hydroxyzine HCl (Hydroxyzine Hcl 25 Mg Tablet) 25 mg PO Q6H PRN PRN Reason: Anxiety Last Admin: 08/01/23 21:49 Dose: 25 mg Magnesium Hydroxide (Milk Of Magnesia 30 Ml Oral.Susp) 30 ml PO DAILY PRN PRN Reason: Constipation Olanzapine (Olanzapine 5 Mg Tablet) 5 mg PO BEDTIME FREDO Last Admin: 08/07/23 20:12 Dose: 5 mg Trazodone HCl (Trazodone Hcl 50 Mg Tablet) 50 mg PO BEDTIME MRX1 PRN PRN Reason: Insomnia Allergies Allergies Allergy/AdvReac Type Severity Reaction Status Date / Time seafood Allergy Hives Verified 05/21/23 13:02 venom-wasp Allergy Anaphylaxis Verified 07/26/23 16:26 pork derived (porcine) AdvReac Unknown Verified 05/21/23 13:02 Assessment & Plan Assessment & Plan (1) Bipolar I disorder with guido: Status: Acute Code(s): F31.10 - Bipolar disorder, current episode manic without psychotic features, unspecified (2) PTSD (post-traumatic stress disorder): Status: Acute Code(s): F43.10 - Post-traumatic stress disorder, unspecified Plan admit to m3 on CV pt signed 3 day notice collect collateral 07/29/2023: Continue current regimen and plans 07/30/2023: Continue current regimen and plans 07/30: offer olanzapine at HS. pt remains manic, with pressured speech, thought disorganization, paranoid and grandiose delusions. 07/31: refused medication last night. will discharge tomorrow, plan made. 08/01: rescinded 3-day notice and asked to remain in hospital. stated willing to take meds, accepted VPA and zyprexa this morning. 08/02: med-compliant, notably slower today, calmer, not pressured or grandiose. no s/e. continue current mgmt. 08/03: more rapid speech today and more affective expression with zyprexa dose decrease last night. no paranoid delusions expressed, however. trending improved. continue current mgmt. titrate zyprexa to 7.5 mg over w/e as indicated. 08/04 continue tx 08/05 continue tx 08/06: improved guido Sx. check labs tomorrow night. 08/07: further improved guido. check labs tonight. investigating housing options. Reason for continued inpatient stay Substantial Risk for: inability to function and rapid decompensation Time Spent With Patient Time: Total time managing care of this patient today __25__ minutes.
[2023-08-08 20:00] VITALS: BP 122/76; PULSE 76; RESP 17; TEMP 36.7; O2SAT 98
[2023-08-08] MEDS: OLANZapine 5 MG TABLET PO (20:36)
[2023-08-08] MEDS: Divalproex Sodium ER 500 MG TAB.ER.24H 1000 MG PO (20:36)
[2023-08-08 20:43] LABS: MANUAL DIFF FLAG NO
[2023-08-08 20:44] LABS: Basophils Absolute Auto 0.1 X10*3/uL (0.0-0.2); Basophils Percent Auto 0.5 % (0-2); Eosinophils Absolute Auto 0.3 X10*3/uL (0.0-0.4); Eosinophils Percent Auto 2.6 % (0-4); Hematocrit 34.2 % (37.0-47.0); Hemoglobin 11.6 g/dl (12.0-16.0); Imm Gran Abs Auto 0.05 X10*3/uL (0.00-0.03); Imm Gran Pct Auto 0.5 % (0.0-0.4); Lymphocytes Absolute Auto 2.3 X10*3/uL (1.2-4.9); Lymphocytes Percent Auto 23.4 % (20-40); Mean Corpuscular HGB Conc 33.9 g/dl (31.0-35.0); Mean Corpuscular Hemoglobin 31.8 pg (27.0-33.0); Mean Corpuscular Volume 93.7 fL (80.0-98.0); Mean Platelet Volume 10.1 fL (9.4-12.3); Monocytes Percent Auto 9.9 % (2-11); Neutrophils Absolute Auto 6.2 x10*3/uL (2.0-8.3); Neutrophils Percent Auto 63.1 % (45-73); Platelet Count 302 X10*3/uL (160-400); Red Blood Count 3.65 X10*6/uL (4.20-5.50); Red Cell Distribution Width 15.3 % (11.0-16.0); White Blood Count 9.8 X10*3/uL (4.8-10.8)
[2023-08-08 20:58] LABS: Valproate 64.4 mcg/mL (50.0-100.0)
[2023-08-08 21:04] LABS: Ammonia 39 umol/L (13-55)
[2023-08-08 21:05] LABS: Alanine Aminotransferase 19 U/L (0-31); Albumin Level 3.8 g/dL (3.5-5.0); Alkaline Phosphatase 64 U/L (39-117); Anion Gap 15 (12-20); Aspartate Amino Transferase 15 U/L (5-31); Bilirubin Direct < 0.2 mg/dL (0.0-0.5); Bilirubin Total 0.1 mg/dL (0.0-1.0); Blood Urea Nitrogen 21 mg/dL (9-16); Calcium 8.9 mg/dL (8.4-10.2); Carbon Dioxide 25 mmol/L (22-29); Chloride 103 mmol/L (96-108); Creatinine Clr Calc Pharmacy 96.6; Estimated Glomerular Filt Rate > 60; Glucose Random 92 mg/dL (60-115); Potassium 4.3 mmol/L (3.3-5.1); Sodium 139 mmol/L (135-145); Total Protein 6.8 g/dL (6.5-8.0)
[2023-08-09 07:15] VITALS: BP 125/65; PULSE 74; RESP 14; TEMP 36.1; O2SAT 97
[2023-08-09 10:15] VITALS: BP 104/54; PULSE 81; RESP 18; TEMP 37.7; O2SAT 98
--- NOTE | 2023-08-09 15:16 | P.PNPSI_ITS ---
Subjective Subjective Date of Service: 08/09/23 Reason For Visit: PTSD, paranoid behavior Interim History: calm, cooperative. labs reviewed, agreeable to increase VPA dose to 1250 tonight. planning to remain through the weekend. per staff, slept about 8 hours. VPA 64.4. Mental Status Exam Mental Status Exam Narrative: alert, oriented and pleasant. nml rate and amount of speech. Good eye contact. Affect is normo-intense, non-labile. no paranoid delusions expressed. mood not assessed. No SI/HI/AVH expressed. Cognitively is grossly intact. No abnormalities of movement. She is able to move all limbs. No abnormality of gait. Diagnostics Vital Signs (24Hr): Vital Signs - 24 hr 08/08/23 20:00 08/09/23 07:15 08/09/23 10:15 Temperature 98.0 F 96.9 F 99.8 F Pulse Rate 76 74 81 Respiratory Rate 17 14 18 Blood Pressure 122/76 125/65 104/54 L Pulse Oximetry 98 97 98 Oxygen Delivery Method Room Air Room Air Room Air BMI result Body Mass Index 25.5 Labs 08/08/23 20:34 08/08/23 20:34 Labs: Laboratory Results - last 48 hr 08/08/23 20:34 WBC 9.8 RBC 3.65 L Hgb 11.6 L Hct 34.2 L MCV 93.7 MCH 31.8 MCHC 33.9 RDW 15.3 Plt Count 302 MPV 10.1 Immature Gran % (Auto) 0.5 H Neut % (Auto) 63.1 Lymph % (Auto) 23.4 [place] % (Auto) 9.9 Eos % (Auto) 2.6 Baso % (Auto) 0.5 Lymph # (Auto) 2.3 [place] # (Auto) 1.0 Eos # (Auto) 0.3 Baso # (Auto) 0.1 Abs Immat Gran (auto) 0.05 H Absolute Neuts (auto) 6.2 Absolute Nucleated RBC 0.000 Nucleated RBC % (auto) 0.0 Sodium 139 Potassium 4.3 Chloride 103 Carbon Dioxide 25 Anion Gap 15 BUN 21 H Creatinine 0.75 Estim Creat Clear Calc 96.6 Estimated GFR > 60 Random Glucose 92 Calcium 8.9 Total Bilirubin 0.1 Direct Bilirubin < 0.2 AST 15 ALT 19 Alkaline Phosphatase 64 Ammonia 39 Total Protein 6.8 Albumin 3.8 Valproic Acid 64.4 Medications Medications Current Medications Al Hydroxide/Mg Hydroxide (Magnesium Hydrox/Alum Hydrox 30 Ml Oral.Susp) 30 ml PO Q6H PRN PRN Reason: Heartburn/Nausea Divalproex Sodium (Divalproex Sodium Er 250 Mg Tab.Er.24h) 1,250 mg PO BEDTIME FERDO Hydroxyzine HCl (Hydroxyzine Hcl 25 Mg Tablet) 25 mg PO Q6H PRN PRN Reason: Anxiety Last Admin: 08/01/23 21:49 Dose: 25 mg Magnesium Hydroxide (Milk Of Magnesia 30 Ml Oral.Susp) 30 ml PO DAILY PRN PRN Reason: Constipation Olanzapine (Olanzapine 5 Mg Tablet) 5 mg PO BEDTIME FREDO Last Admin: 08/08/23 20:36 Dose: 5 mg Trazodone HCl (Trazodone Hcl 50 Mg Tablet) 50 mg PO BEDTIME MRX1 PRN PRN Reason: Insomnia Allergies Allergies Allergy/AdvReac Type Severity Reaction Status Date / Time seafood Allergy Hives Verified 05/21/23 13:02 venom-wasp Allergy Anaphylaxis Verified 07/26/23 16:26 pork derived (porcine) AdvReac Unknown Verified 05/21/23 13:02 Assessment & Plan Assessment & Plan (1) Bipolar I disorder with guido: Status: Acute Code(s): F31.10 - Bipolar disorder, current episode manic without psychotic features, unspecified (2) PTSD (post-traumatic stress disorder): Status: Acute Code(s): F43.10 - Post-traumatic stress disorder, unspecified Plan admit to m3 on CV pt signed 3 day notice collect collateral 07/29/2023: Continue current regimen and plans 07/30/2023: Continue current regimen and plans 07/30: offer olanzapine at HS. pt remains manic, with pressured speech, thought disorganization, paranoid and grandiose delusions. 07/31: refused medication last night. will discharge tomorrow, plan made. 08/01: rescinded 3-day notice and asked to remain in hospital. stated willing to take meds, accepted VPA and zyprexa this morning. 08/02: med-compliant, notably slower today, calmer, not pressured or grandiose. no s/e. continue current mgmt. 08/03: more rapid speech today and more affective expression with zyprexa dose decrease last night. no paranoid delusions expressed, however. trending improved. continue current mgmt. titrate zyprexa to 7.5 mg over w/e as indicated. 08/04 continue tx 08/05 continue tx 08/06: improved guido Sx. check labs tomorrow night. 08/07: further improved guido. check labs tonight. investigating housing options. 08/08: VPA 64.4, other labs reassuring. passed note to male staff suggesting she move in with him. increase VPA to 1250 as of tonight. planning to continue to stabilize through w/e. Reason for continued inpatient stay Substantial Risk for: inability to function and rapid decompensation Time Spent With Patient Time: Total time managing care of this patient today __35__ minutes.
[2023-08-09 19:54] VITALS: BP 156/78; PULSE 98; TEMP 35.6; O2SAT 98
[2023-08-09] MEDS: Divalproex Sodium ER 250 MG TAB.ER.24H 1250 MG PO (20:55)
[2023-08-09] MEDS: OLANZapine 5 MG TABLET PO (20:56)
[2023-08-10 07:00] VITALS: BMI 26.3
[2023-08-10 08:00] VITALS: BP 131/71; PULSE 67; RESP 14; TEMP 36.5; O2SAT 99
--- NOTE | 2023-08-10 14:12 | HO.PSYCHPN ---
Subjective Subjective Date of Service: 08/10/23 Reason For Visit: PTSD, paranoid behavior Interim History: playing solitaire in her room, social, no complaints or requests. per staff, denies depression, endorses anxiety. attending groups. social. brighter affect. less perseverative. slept about 8 hours. Mental Status Exam Mental Status Exam Narrative: alert, oriented and pleasant. nml rate and amount of speech. Good eye contact. Affect is normo-intense, non-labile. no paranoid delusions expressed. mood not assessed. No SI/HI/AVH expressed. Cognitively is grossly intact. No abnormalities of movement. She is able to move all limbs. No abnormality of gait. Diagnostics Vital Signs (24Hr): Vital Signs - 24 hr 08/09/23 19:54 08/10/23 08:00 Temperature 96.1 F L 97.7 F Pulse Rate 98 67 Respiratory Rate 14 Blood Pressure 156/78 H 131/71 Pulse Oximetry 98 99 Oxygen Delivery Method Room Air Room Air BMI result Body Mass Index 26.3 Labs 08/08/23 20:34 08/08/23 20:34 Labs: Laboratory Results - last 48 hr 08/08/23 20:34 WBC 9.8 RBC 3.65 L Hgb 11.6 L Hct 34.2 L MCV 93.7 MCH 31.8 MCHC 33.9 RDW 15.3 Plt Count 302 MPV 10.1 Immature Gran % (Auto) 0.5 H Neut % (Auto) 63.1 Lymph % (Auto) 23.4 [place] % (Auto) 9.9 Eos % (Auto) 2.6 Baso % (Auto) 0.5 Lymph # (Auto) 2.3 [place] # (Auto) 1.0 Eos # (Auto) 0.3 Baso # (Auto) 0.1 Abs Immat Gran (auto) 0.05 H Absolute Neuts (auto) 6.2 Absolute Nucleated RBC 0.000 Nucleated RBC % (auto) 0.0 Sodium 139 Potassium 4.3 Chloride 103 Carbon Dioxide 25 Anion Gap 15 BUN 21 H Creatinine 0.75 Estim Creat Clear Calc 96.6 Estimated GFR > 60 Random Glucose 92 Calcium 8.9 Total Bilirubin 0.1 Direct Bilirubin < 0.2 AST 15 ALT 19 Alkaline Phosphatase 64 Ammonia 39 Total Protein 6.8 Albumin 3.8 Valproic Acid 64.4 Medications Medications Current Medications Al Hydroxide/Mg Hydroxide (Magnesium Hydrox/Alum Hydrox 30 Ml Oral.Susp) 30 ml PO Q6H PRN PRN Reason: Heartburn/Nausea Divalproex Sodium (Divalproex Sodium Er 250 Mg Tab.Er.24h) 1,250 mg PO BEDTIME [facility] Last Admin: 08/09/23 20:55 Dose: 1,250 mg Hydroxyzine HCl (Hydroxyzine Hcl 25 Mg Tablet) 25 mg PO Q6H PRN PRN Reason: Anxiety Last Admin: 08/01/23 21:49 Dose: 25 mg Magnesium Hydroxide (Milk Of Magnesia 30 Ml Oral.Susp) 30 ml PO DAILY PRN PRN Reason: Constipation Olanzapine (Olanzapine 5 Mg Tablet) 5 mg PO BEDTIME [facility] Last Admin: 08/09/23 20:56 Dose: 5 mg Trazodone HCl (Trazodone Hcl 50 Mg Tablet) 50 mg PO BEDTIME MRX1 PRN PRN Reason: Insomnia Allergies Allergies Allergy/AdvReac Type Severity Reaction Status Date / Time seafood Allergy Hives Verified 05/21/23 13:02 venom-wasp Allergy Anaphylaxis Verified 07/26/23 16:26 pork derived (porcine) AdvReac Unknown Verified 05/21/23 13:02 Assessment & Plan Assessment & Plan (1) Bipolar I disorder with guido: Status: Acute Code(s): F31.10 - Bipolar disorder, current episode manic without psychotic features, unspecified (2) PTSD (post-traumatic stress disorder): Status: Acute Code(s): F43.10 - Post-traumatic stress disorder, unspecified Plan admit to m3 on CV pt signed 3 day notice collect collateral 07/29/2023: Continue current regimen and plans 07/30/2023: Continue current regimen and plans 07/30: offer olanzapine at HS. pt remains manic, with pressured speech, thought disorganization, paranoid and grandiose delusions. 07/31: refused medication last night. will discharge tomorrow, plan made. 08/01: rescinded 3-day notice and asked to remain in hospital. stated willing to take meds, accepted VPA and zyprexa this morning. 08/02: med-compliant, notably slower today, calmer, not pressured or grandiose. no s/e. continue current mgmt. 08/03: more rapid speech today and more affective expression with zyprexa dose decrease last night. no paranoid delusions expressed, however. trending improved. continue current mgmt. titrate zyprexa to 7.5 mg over w/e as indicated. 08/04 continue tx 08/05 continue tx 08/06: improved guido Sx. check labs tomorrow night. 08/07: further improved guido. check labs tonight. investigating housing options. 08/08: VPA 64.4, other labs reassuring. passed note to male staff suggesting she move in with him. increase VPA to 1250 as of tonight. planning to continue to stabilize through w/e. 08/09: continue current mgmt. remains improved, but still delusional. Reason for continued inpatient stay Substantial Risk for: inability to function and rapid decompensation Time Spent With Patient Time: Total time managing care of this patient today __25__ minutes.
[2023-08-10 20:00] VITALS: BP 136/75; PULSE 97; RESP 16; TEMP 36.4; O2SAT 96
[2023-08-10] MEDS: OLANZapine 5 MG TABLET PO (20:50)
[2023-08-10] MEDS: Divalproex Sodium 250 MG TABLET.DR PO (20:51)
[2023-08-10] MEDS: Divalproex Sodium 500 MG TABLET.DR 1000 MG PO (20:52)
[2023-08-11 07:34] VITALS: BP 110/68; PULSE 69; RESP 16; TEMP 36.7; O2SAT 98
--- NOTE | 2023-08-11 11:19 | P.PNPSI_ITS ---
Subjective Subjective Date of Service: 08/11/23 Reason For Visit: PTSD, paranoid behavior Interim History: calm, cooperative. states she remains with precognition and a prophet even on VPA. amenable to have labs checked on monday. reports TRINIDAD Quiros noticed a discrepancy in court paperwork, which she believes will be important for her case. per staff, slept 8 hours. remains delusional. Mental Status Exam Mental Status Exam Narrative: alert, oriented and pleasant. nml rate and amount of speech. Good eye contact. Affect is normo-intense, non-labile. grandiose delusions. mood euphoric. No SI/HI/AVH expressed. Cognitively is grossly intact. No abnormalities of movement. She is able to move all limbs. No abnormality of gait. Diagnostics Vital Signs (24Hr): Vital Signs - 24 hr 08/10/23 20:00 08/11/23 07:34 Temperature 97.6 F 98.1 F Pulse Rate 97 69 Respiratory Rate 16 16 Blood Pressure 136/75 110/68 Pulse Oximetry 96 98 Oxygen Delivery Method Room Air Room Air BMI result Body Mass Index 26.3 Labs 08/08/23 20:34 08/08/23 20:34 Medications Medications Current Medications Al Hydroxide/Mg Hydroxide (Magnesium Hydrox/Alum Hydrox 30 Ml Oral.Susp) 30 ml PO Q6H PRN PRN Reason: Heartburn/Nausea Divalproex Sodium (Divalproex Sodium 500 Mg Tablet.) 1,000 mg PO BEDTIME [facility] Last Admin: 08/10/23 20:52 Dose: 1,000 mg Divalproex Sodium (Divalproex Sodium 250 Mg Tablet.) 250 mg PO BEDTIME [facility] Last Admin: 08/10/23 20:51 Dose: 250 mg Hydroxyzine HCl (Hydroxyzine Hcl 25 Mg Tablet) 25 mg PO Q6H PRN PRN Reason: Anxiety Last Admin: 08/01/23 21:49 Dose: 25 mg Magnesium Hydroxide (Milk Of Magnesia 30 Ml Oral.Susp) 30 ml PO DAILY PRN PRN Reason: Constipation Olanzapine (Olanzapine 5 Mg Tablet) 5 mg PO BEDTIME [facility] Last Admin: 08/10/23 20:50 Dose: 5 mg Trazodone HCl (Trazodone Hcl 50 Mg Tablet) 50 mg PO BEDTIME MRX1 PRN PRN Reason: Insomnia Allergies Allergies Allergy/AdvReac Type Severity Reaction Status Date / Time seafood Allergy Hives Verified 05/21/23 13:02 venom-wasp Allergy Anaphylaxis Verified 07/26/23 16:26 pork derived (porcine) AdvReac Unknown Verified 05/21/23 13:02 Assessment & Plan Assessment & Plan (1) Bipolar I disorder with guido: Status: Acute Code(s): F31.10 - Bipolar disorder, current episode manic without psychotic features, unspecified (2) PTSD (post-traumatic stress disorder): Status: Acute Code(s): F43.10 - Post-traumatic stress disorder, unspecified Plan admit to m3 on CV pt signed 3 day notice collect collateral 07/29/2023: Continue current regimen and plans 07/30/2023: Continue current regimen and plans 07/30: offer olanzapine at HS. pt remains manic, with pressured speech, thought disorganization, paranoid and grandiose delusions. 07/31: refused medication last night. will discharge tomorrow, plan made. 08/01: rescinded 3-day notice and asked to remain in hospital. stated willing to take meds, accepted VPA and zyprexa this morning. 08/02: med-compliant, notably slower today, calmer, not pressured or grandiose. no s/e. continue current mgmt. 08/03: more rapid speech today and more affective expression with zyprexa dose decrease last night. no paranoid delusions expressed, however. trending improved. continue current mgmt. titrate zyprexa to 7.5 mg over w/e as indicated. 08/04 continue tx 08/05 continue tx 08/06: improved guido Sx. check labs tomorrow night. 08/07: further improved guido. check labs tonight. investigating housing options. 08/08: VPA 64.4, other labs reassuring. passed note to male staff suggesting she move in with him. increase VPA to 1250 as of tonight. planning to continue to stabilize through w/e. 08/09: continue current mgmt. remains improved, but still delusional. 08/10: grandiose delusions, euphoric. check labs monday morning. continue current mgmt. Reason for continued inpatient stay Substantial Risk for: inability to function and rapid decompensation Time Spent With Patient Time: Total time managing care of this patient today __25__ minutes.
[2023-08-11 20:00] VITALS: BP 132/85; PULSE 75; RESP 16; TEMP 36.7; O2SAT 98
[2023-08-11] MEDS: OLANZapine 5 MG TABLET PO (20:41)
[2023-08-11] MEDS: Divalproex Sodium 500 MG TABLET.DR 1000 MG PO (20:41)
[2023-08-11] MEDS: Divalproex Sodium 250 MG TABLET.DR PO (20:41)
[2023-08-12 07:38] VITALS: BP 122/67; PULSE 70; RESP 14; TEMP 36.4; O2SAT 98
--- NOTE | 2023-08-12 14:00 | HO.PSYCHPN ---
Subjective Subjective Date of Service: 08/12/23 Reason For Visit: PTSD, paranoid behavior Subjective Notes: Conditional Voluntary Interim History: The nursing staff reported the patient had been compliant with treatment, she slept 7 hours and she had been less religiously preoccupied. On interview the patient denies new symptoms she states that she feels much better. Mental Status Exam Mental Status Exam Patient Appearance: Well Grooomed and Appropriate Patient Orientation: Person and Situation Level of Consciousness: Awake and Appropriate Patient Behavior: Guarded and Passive Mood Description: Calm Affect Description: Expansive Patient Cognition Impaired: Yes Ability to Follow Directions: Good Speech Pattern: Clear Hallucinations: None Delusions: Ideas of Reference Thought Process: Racing and Distracted Thought Content: positive for [place] and positive for Poverty of Content Judgement: Fair Diagnostics Vital Signs (24Hr): Vital Signs - 24 hr 08/11/23 20:00 08/12/23 07:38 Temperature 98.1 F 97.6 F Pulse Rate 75 70 Respiratory Rate 16 14 Blood Pressure 132/85 122/67 Pulse Oximetry 98 98 Oxygen Delivery Method Room Air Room Air BMI result Body Mass Index 26.3 Labs 08/08/23 20:34 08/08/23 20:34 Medications Medications Current Medications Al Hydroxide/Mg Hydroxide (Magnesium Hydrox/Alum Hydrox 30 Ml Oral.Susp) 30 ml PO Q6H PRN PRN Reason: Heartburn/Nausea Divalproex Sodium (Divalproex Sodium 500 Mg Tablet.) 1,000 mg PO BEDTIME [facility] Last Admin: 08/11/23 20:41 Dose: 1,000 mg Divalproex Sodium (Divalproex Sodium 250 Mg Tablet.) 250 mg PO BEDTIME [facility] Last Admin: 08/11/23 20:41 Dose: 250 mg Hydroxyzine HCl (Hydroxyzine Hcl 25 Mg Tablet) 25 mg PO Q6H PRN PRN Reason: Anxiety Last Admin: 08/01/23 21:49 Dose: 25 mg Magnesium Hydroxide (Milk Of Magnesia 30 Ml Oral.Susp) 30 ml PO DAILY PRN PRN Reason: Constipation Olanzapine (Olanzapine 5 Mg Tablet) 5 mg PO BEDTIME [facility] Last Admin: 08/11/23 20:41 Dose: 5 mg Trazodone HCl (Trazodone Hcl 50 Mg Tablet) 50 mg PO BEDTIME MRX1 PRN PRN Reason: Insomnia Allergies Allergies Allergy/AdvReac Type Severity Reaction Status Date / Time seafood Allergy Hives Verified 05/21/23 13:02 venom-wasp Allergy Anaphylaxis Verified 07/26/23 16:26 pork derived (porcine) AdvReac Unknown Verified 05/21/23 13:02 Assessment & Plan Assessment & Plan (1) Bipolar I disorder with guido: Status: Acute Code(s): F31.10 - Bipolar disorder, current episode manic without psychotic features, unspecified (2) PTSD (post-traumatic stress disorder): Status: Acute Code(s): F43.10 - Post-traumatic stress disorder, unspecified Plan admit to m3 on CV pt signed 3 day notice collect collateral 07/29/2023: Continue current regimen and plans 07/30/2023: Continue current regimen and plans 07/30: offer olanzapine at HS. pt remains manic, with pressured speech, thought disorganization, paranoid and grandiose delusions. 07/31: refused medication last night. will discharge tomorrow, plan made. 08/01: rescinded 3-day notice and asked to remain in hospital. stated willing to take meds, accepted VPA and zyprexa this morning. 08/02: med-compliant, notably slower today, calmer, not pressured or grandiose. no s/e. continue current mgmt. 08/03: more rapid speech today and more affective expression with zyprexa dose decrease last night. no paranoid delusions expressed, however. trending improved. continue current mgmt. titrate zyprexa to 7.5 mg over w/e as indicated. 08/04 continue tx 08/05 continue tx 08/06: improved guido Sx. check labs tomorrow night. 08/07: further improved guido. check labs tonight. investigating housing options. 08/08: VPA 64.4, other labs reassuring. passed note to male staff suggesting she move in with him. increase VPA to 1250 as of tonight. planning to continue to stabilize through w/e. 08/09: continue current mgmt. remains improved, but still delusional. 08/10: grandiose delusions, euphoric. check labs monday morning. continue current mgmt. 08/11 continue same treatment improving slowly Reason for continued inpatient stay Substantial Risk for: inability to function, rapid decompensation and med/psych decompensation Time Spent With Patient Time: Total time managing care of this patient today __20__ minutes.
[2023-08-12 20:15] VITALS: BP 128/81; PULSE 92; RESP 18; TEMP 36.9; O2SAT 100
[2023-08-12] MEDS: Divalproex Sodium 500 MG TABLET.DR 1000 MG PO (20:18)
[2023-08-12] MEDS: Divalproex Sodium 250 MG TABLET.DR PO (20:18)
[2023-08-12] MEDS: OLANZapine 5 MG TABLET PO (20:19)
[2023-08-13 08:00] VITALS: BP 122/77; PULSE 80; RESP 18; TEMP 36.3; O2SAT 98
--- NOTE | 2023-08-13 11:51 | HO.PSYCHPN ---
Subjective Subjective Date of Service: 08/13/23 Reason For Visit: PTSD, paranoid behavior Subjective Notes: Conditional Voluntary Interim History: The nursing staff reported the patient had been pacing, cheerful compliant with her medications. On interview the patient denies new symptoms she states that she feels much better less manic. She is going to have blood work next Monday she states that she is less sedated now Mental Status Exam Mental Status Exam Patient Appearance: Well Grooomed and Appropriate Patient Orientation: Person and Situation Level of Consciousness: Awake and Appropriate Patient Behavior: Guarded and Passive Mood Description: Calm Affect Description: Constricted Patient Cognition Impaired: No Ability to Follow Directions: Good Speech Pattern: Clear Hallucinations: None Delusions: Not Present Thought Process: Linear Thought Content: positive for [place] and positive for Poverty of Content Judgement: Fair Diagnostics Vital Signs (24Hr): Vital Signs - 24 hr 08/12/23 20:15 08/13/23 08:00 Temperature 98.5 F 97.4 F Pulse Rate 92 80 Respiratory Rate 18 18 Blood Pressure 128/81 122/77 Pulse Oximetry 100 98 Oxygen Delivery Method Room Air Room Air BMI result Body Mass Index 26.3 Labs 08/08/23 20:34 08/08/23 20:34 Medications Medications Current Medications Al Hydroxide/Mg Hydroxide (Magnesium Hydrox/Alum Hydrox 30 Ml Oral.Susp) 30 ml PO Q6H PRN PRN Reason: Heartburn/Nausea Divalproex Sodium (Divalproex Sodium 500 Mg Tablet.) 1,000 mg PO BEDTIME [facility] Last Admin: 08/12/23 20:18 Dose: 1,000 mg Divalproex Sodium (Divalproex Sodium 250 Mg Tablet.) 250 mg PO BEDTIME [facility] Last Admin: 08/12/23 20:18 Dose: 250 mg Hydroxyzine HCl (Hydroxyzine Hcl 25 Mg Tablet) 25 mg PO Q6H PRN PRN Reason: Anxiety Last Admin: 08/01/23 21:49 Dose: 25 mg Magnesium Hydroxide (Milk Of Magnesia 30 Ml Oral.Susp) 30 ml PO DAILY PRN PRN Reason: Constipation Olanzapine (Olanzapine 5 Mg Tablet) 5 mg PO BEDTIME [facility] Last Admin: 08/12/23 20:19 Dose: 5 mg Trazodone HCl (Trazodone Hcl 50 Mg Tablet) 50 mg PO BEDTIME MRX1 PRN PRN Reason: Insomnia Allergies Allergies Allergy/AdvReac Type Severity Reaction Status Date / Time seafood Allergy Hives Verified 05/21/23 13:02 venom-wasp Allergy Anaphylaxis Verified 07/26/23 16:26 pork derived (porcine) AdvReac Unknown Verified 05/21/23 13:02 Assessment & Plan Assessment & Plan (1) Bipolar I disorder with guido: Status: Acute Code(s): F31.10 - Bipolar disorder, current episode manic without psychotic features, unspecified (2) PTSD (post-traumatic stress disorder): Status: Acute Code(s): F43.10 - Post-traumatic stress disorder, unspecified Plan admit to m3 on CV pt signed 3 day notice collect collateral 07/29/2023: Continue current regimen and plans 07/30/2023: Continue current regimen and plans 07/30: offer olanzapine at HS. pt remains manic, with pressured speech, thought disorganization, paranoid and grandiose delusions. 07/31: refused medication last night. will discharge tomorrow, plan made. 08/01: rescinded 3-day notice and asked to remain in hospital. stated willing to take meds, accepted VPA and zyprexa this morning. 08/02: med-compliant, notably slower today, calmer, not pressured or grandiose. no s/e. continue current mgmt. 08/03: more rapid speech today and more affective expression with zyprexa dose decrease last night. no paranoid delusions expressed, however. trending improved. continue current mgmt. titrate zyprexa to 7.5 mg over w/e as indicated. 08/04 continue tx 08/05 continue tx 08/06: improved guido Sx. check labs tomorrow night. 08/07: further improved guido. check labs tonight. investigating housing options. 08/08: VPA 64.4, other labs reassuring. passed note to male staff suggesting she move in with him. increase VPA to 1250 as of tonight. planning to continue to stabilize through w/e. 08/09: continue current mgmt. remains improved, but still delusional. 08/10: grandiose delusions, euphoric. check labs monday morning. continue current mgmt. 08/11 continue same treatment improving slowly 08/12 continue same treatment, tomorrow blood Reason for continued inpatient stay Substantial Risk for: inability to function, rapid decompensation and med/psych decompensation Time Spent With Patient Time: Total time managing care of this patient today __20__ minutes.
[2023-08-13 20:00] VITALS: BP 131/80; PULSE 89; RESP 16; TEMP 36.9; O2SAT 98
[2023-08-13] MEDS: Divalproex Sodium 250 MG TABLET.DR PO (20:41)
[2023-08-13] MEDS: OLANZapine 5 MG TABLET PO (20:41)
[2023-08-13] MEDS: Divalproex Sodium 500 MG TABLET.DR 1000 MG PO (20:41)
[2023-08-13] MEDS: Magnesium Hydrox/Alum Hydrox 30 ML ORAL.SUSP PO (21:03)
[2023-08-14 08:00] VITALS: BP 120/68; PULSE 70; RESP 16; TEMP 37; O2SAT 99
[2023-08-14 10:58] LABS: MANUAL DIFF FLAG NO
--- NOTE | 2023-08-14 11:01 | HO.PSYCHPN ---
Subjective Subjective Date of Service: 08/14/23 Reason For Visit: PTSD, paranoid behavior Subjective Notes: Conditional Voluntary Healthcare Proxy: No Guardianship: No Medical Problems Affecting Mental Status: No Interim History: pt continues to present with pressured speech; tangential at times; pleasant and cooperative; focused on government poor care of her son; denies she has mental health dx. reports she slept through night; compliant with meds. Medication Compliance: Yes Side effects from medications: No Attending Groups: Yes Review of Systems Acute medical concerns: No Mental Status Exam Mental Status Exam Patient Appearance: Appropriate Patient Orientation: Person and Place Level of Consciousness: Awake Patient Behavior: Appropriate Mood Description: Anxious Affect Description: Anxious Patient Cognition Impaired: Yes Ability to Follow Directions: Good Speech Pattern: Perseverating, Spontaneous Speech and Excessive Hallucinations: None Thought Process: Distracted and Rumination Thought Content: positive for Per[place] and positive for Loose Associations Judgement: Fair Diagnostics Vital Signs (24Hr): Vital Signs - 24 hr 08/13/23 20:00 08/14/23 08:00 Temperature 98.5 F 98.6 F Pulse Rate 89 70 Respiratory Rate 16 16 Blood Pressure 131/80 120/68 Pulse Oximetry 98 99 Oxygen Delivery Method Room Air Room Air BMI result Body Mass Index 26.3 Labs 08/14/23 10:53 08/14/23 10:52 Medications Medications Current Medications Al Hydroxide/Mg Hydroxide (Magnesium Hydrox/Alum Hydrox 30 Ml Oral.Susp) 30 ml PO Q6H PRN PRN Reason: Heartburn/Nausea Last Admin: 08/13/23 21:03 Dose: 30 ml Divalproex Sodium (Divalproex Sodium 500 Mg Tablet.) 1,000 mg PO BEDTIME [facility] Last Admin: 08/13/23 20:41 Dose: 1,000 mg Divalproex Sodium (Divalproex Sodium 250 Mg Tablet.) 250 mg PO BEDTIME [facility] Last Admin: 08/13/23 20:41 Dose: 250 mg Hydroxyzine HCl (Hydroxyzine Hcl 25 Mg Tablet) 25 mg PO Q6H PRN PRN Reason: Anxiety Last Admin: 08/01/23 21:49 Dose: 25 mg Magnesium Hydroxide (Milk Of Magnesia 30 Ml Oral.Susp) 30 ml PO DAILY PRN PRN Reason: Constipation Olanzapine (Olanzapine 5 Mg Tablet) 5 mg PO BEDTIME [facility] Last Admin: 08/13/23 20:41 Dose: 5 mg Trazodone HCl (Trazodone Hcl 50 Mg Tablet) 50 mg PO BEDTIME MRX1 PRN PRN Reason: Insomnia Allergies Allergies Allergy/AdvReac Type Severity Reaction Status Date / Time seafood Allergy Hives Verified 05/21/23 13:02 venom-wasp Allergy Anaphylaxis Verified 07/26/23 16:26 pork derived (porcine) AdvReac Unknown Verified 05/21/23 13:02 Assessment & Plan Assessment & Plan (1) Bipolar I disorder with guido: Status: Acute Code(s): F31.10 - Bipolar disorder, current episode manic without psychotic features, unspecified (2) PTSD (post-traumatic stress disorder): Status: Acute Code(s): F43.10 - Post-traumatic stress disorder, unspecified Plan admit to m3 on CV pt signed 3 day notice collect collateral 07/29/2023: Continue current regimen and plans 07/30/2023: Continue current regimen and plans 07/30: offer olanzapine at HS. pt remains manic, with pressured speech, thought disorganization, paranoid and grandiose delusions. 07/31: refused medication last night. will discharge tomorrow, plan made. 08/01: rescinded 3-day notice and asked to remain in hospital. stated willing to take meds, accepted VPA and zyprexa this morning. 08/02: med-compliant, notably slower today, calmer, not pressured or grandiose. no s/e. continue current mgmt. 08/03: more rapid speech today and more affective expression with zyprexa dose decrease last night. no paranoid delusions expressed, however. trending improved. continue current mgmt. titrate zyprexa to 7.5 mg over w/e as indicated. 08/04 continue tx 08/05 continue tx 08/06: improved guido Sx. check labs tomorrow night. 08/07: further improved guido. check labs tonight. investigating housing options. 08/08: VPA 64.4, other labs reassuring. passed note to male staff suggesting she move in with him. increase VPA to 1250 as of tonight. planning to continue to stabilize through w/e. 08/09: continue current mgmt. remains improved, but still delusional. 08/10: grandiose delusions, euphoric. check labs monday. continue current mgmt. 08/11 continue same treatment improving slowly 08/12 continue same treatment, tomorrow blood 08/13 continue treatmetn blood work drawn- results pending Patient educated on: diagnosis, medication risk/benefits and therapeutic strategies Informed Consent: does not understand Reason for continued inpatient stay Substantial Risk for: inability to function Time Spent With Patient Time: Total time managing care of this patient today ____ minutes.
[2023-08-14 11:04] LABS: Basophils Absolute Auto 0.1 X10*3/uL (0.0-0.2); Basophils Percent Auto 0.6 % (0-2); Eosinophils Absolute Auto 0.2 X10*3/uL (0.0-0.4); Eosinophils Percent Auto 2.6 % (0-4); Hematocrit 37.1 % (37.0-47.0); Hemoglobin 12.4 g/dl (12.0-16.0); Imm Gran Abs Auto 0.05 X10*3/uL (0.00-0.03); Imm Gran Pct Auto 0.6 % (0.0-0.4); Lymphocytes Absolute Auto 1.2 X10*3/uL (1.2-4.9); Mean Corpuscular HGB Conc 33.4 g/dl (31.0-35.0); Mean Corpuscular Hemoglobin 31.3 pg (27.0-33.0); Mean Corpuscular Volume 93.7 fL (80.0-98.0); Mean Platelet Volume 10.1 fL (9.4-12.3); Monocytes Percent Auto 12.2 % (2-11); Neutrophils Absolute Auto 5.7 x10*3/uL (2.0-8.3); Platelet Count 291 X10*3/uL (160-400); Red Blood Count 3.96 X10*6/uL (4.20-5.50); Red Cell Distribution Width 15.8 % (11.0-16.0); White Blood Count 8.2 X10*3/uL (4.8-10.8)
[2023-08-14 11:13] LABS: Valproate 96.6 mcg/mL (50.0-100.0)
[2023-08-14 11:19] LABS: Alanine Aminotransferase 18 U/L (0-31); Albumin Level 4.1 g/dL (3.5-5.0); Alkaline Phosphatase 65 U/L (39-117); Anion Gap 14 (12-20); Aspartate Amino Transferase 14 U/L (5-31); Bilirubin Direct < 0.2 mg/dL (0.0-0.5); Bilirubin Total 0.2 mg/dL (0.0-1.0); Blood Urea Nitrogen 16 mg/dL (9-16); Calcium 9.6 mg/dL (8.4-10.2); Carbon Dioxide 25 mmol/L (22-29); Chloride 107 mmol/L (96-108); Creatinine Clr Calc Pharmacy 102.5; Estimated Glomerular Filt Rate > 60; Glucose Random 95 mg/dL (60-115); Potassium 4.2 mmol/L (3.3-5.1); Sodium 142 mmol/L (135-145); Total Protein 7.2 g/dL (6.5-8.0)
[2023-08-14 20:00] VITALS: BP 122/76; PULSE 88; RESP 18; TEMP 37; O2SAT 97
[2023-08-14] MEDS: Divalproex Sodium 250 MG TABLET.DR PO (20:47)
[2023-08-14] MEDS: Divalproex Sodium 500 MG TABLET.DR 1000 MG PO (20:48)
[2023-08-14] MEDS: OLANZapine 5 MG TABLET PO (20:48)
[2023-08-15 07:32] VITALS: BP 141/75; PULSE 65; RESP 16; TEMP 36.5; O2SAT 100
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
[2023-08-15 20:00] VITALS: BP 129/84; PULSE 83; RESP 14; TEMP 37.1; O2SAT 97
[2023-08-15] MEDS: OLANZapine 5 MG TABLET PO (20:35)
[2023-08-15] MEDS: Divalproex Sodium 500 MG TABLET.DR 1000 MG PO (20:35)
[2023-08-15] MEDS: Divalproex Sodium 250 MG TABLET.DR PO (20:35)
[2023-08-15] MEDS: hydrOXYzine HCL 25 MG TABLET PO (22:59)
[2023-08-16 07:54] VITALS: BP 112/65; PULSE 71; RESP 16; TEMP 36.9; O2SAT 99
--- NOTE | 2023-08-16 10:42 | HO.PSYCHPN ---
Subjective Subjective Date of Service: 08/16/23 Reason For Visit: PTSD, paranoid behavior Subjective Notes: Conditional Voluntary Interim History: Pt slept most of the night. She reports current medications help with her PTSD. She continues to present with shinto and persecutory delusions but is very pleasant and appreciative of support given here on the unit. She denies SI/HI. We discussed considering increasing dose of olanzapine to better treat psychosis and delusions but states higher doses are too sedating. She continues to talk about hearing spirits, having premonitory visions which brings her some peace of mind. She has been visible on the unit. She is social with peers. No behavioral concern. Medication Compliance: Yes Review of Systems Review of Systems Constitutional : No Weight loss, No Fever, No Chills, No Night Sweats, No Fatigue, No Malaise ENT/Mouth : No Hearing loss, No Ear Pain, No Nasal Congestion, No Sinus Pain, No Hoarseness, No sore throat, No Rhinorrhea, No Swallowing Difficulty Eyes: No Eye Pain, No Swelling, No Redness, No Foreign Body, No Discharge, No Vision Changes Cardiovascular : No Chest Pain, No SOB, No Dyspnea on Exertion, No Orthopnea, No Edema, No Palpitations Respiratory : No Cough, No Sputum, No Wheezing, No Smoke Exposure, No Dyspnea Gastrointestinal : No Nausea, No Vomiting, No Diarrhea, No Constipation, No abdominal Pain, No Hematochezia, No Melena Genitourinary : no irregular bleeding, No Dysuria, No Urinary Frequency, No Hematuria, No Urinary Incontinence, No Urgency, No Flank Pain, No Urinary Flow Changes, No Hesitancy Musculoskeletal : No joint pain, No Myalgias, No Joint Swelling Skin : No Skin Lesions, No rash Neuro : No Weakness, No Numbness, No Paresthesias, No Loss of Consciousness, No Dizziness, No Headache Psych : No Anxiety/Panic, No Depression, patient denies SI or HI, angry that she was brought on a Section 12 Heme/Lymph: No Bruising, No Bleeding,No Lymphadenopathy Endocrine : No Polyuria, No Polydipsia, No Temperature Intolerance Yes all other systems are reviewed and are negative Mental Status Exam Mental Status Exam Narrative: alert, oriented and pleasant. nml rate and amount of speech. Good eye contact. Affect is normo-intense, non-labile. grandiose delusions. mood euphoric. No SI/HI/AVH expressed. Cognitively is grossly intact. No abnormalities of movement. She is able to move all limbs. No abnormality of gait. Diagnostics Vital Signs (24Hr): Vital Signs - 24 hr 08/15/23 20:00 08/16/23 07:54 Temperature 98.8 F 98.5 F Pulse Rate 83 71 Respiratory Rate 14 16 Blood Pressure 129/84 112/65 Pulse Oximetry 97 99 Oxygen Delivery Method Room Air Room Air BMI result Body Mass Index 26.3 Labs 08/14/23 10:53 08/14/23 10:52 Labs: Laboratory Results - last 48 hr 08/14/23 08/14/23 10:52 10:53 WBC 8.2 RBC 3.96 L Hgb 12.4 Hct 37.1 MCV 93.7 MCH 31.3 MCHC 33.4 RDW 15.8 Plt Count 291 MPV 10.1 Immature Gran % (Auto) 0.6 H Neut % (Auto) 69.0 Lymph % (Auto) 15.0 L [place] % (Auto) 12.2 H Eos % (Auto) 2.6 Baso % (Auto) 0.6 Lymph # (Auto) 1.2 [place] # (Auto) 1.0 Eos # (Auto) 0.2 Baso # (Auto) 0.1 Abs Immat Gran (auto) 0.05 H Absolute Neuts (auto) 5.7 Absolute Nucleated RBC 0.000 Nucleated RBC % (auto) 0.0 Sodium 142 Potassium 4.2 Chloride 107 Carbon Dioxide 25 Anion Gap 14 BUN 16 Creatinine 0.77 Estim Creat Clear Calc 102.5 Estimated GFR > 60 Random Glucose 95 Calcium 9.6 D Total Bilirubin 0.2 Direct Bilirubin < 0.2 AST 14 ALT 18 Alkaline Phosphatase 65 Total Protein 7.2 Albumin 4.1 Valproic Acid 96.6 Medications Medications Current Medications Al Hydroxide/Mg Hydroxide (Magnesium Hydrox/Alum Hydrox 30 Ml Oral.Susp) 30 ml PO Q6H PRN PRN Reason: Heartburn/Nausea Last Admin: 08/13/23 21:03 Dose: 30 ml Divalproex Sodium (Divalproex Sodium 500 Mg Tablet.) 1,000 mg PO BEDTIME FREDO Last Admin: 08/15/23 20:35 Dose: 1,000 mg Divalproex Sodium (Divalproex Sodium 250 Mg Tablet.) 250 mg PO BEDTIME FREDO Last Admin: 08/15/23 20:35 Dose: 250 mg Hydroxyzine HCl (Hydroxyzine Hcl 25 Mg Tablet) 25 mg PO Q6H PRN PRN Reason: Anxiety Last Admin: 08/15/23 22:59 Dose: 25 mg Magnesium Hydroxide (Milk Of Magnesia 30 Ml Oral.Susp) 30 ml PO DAILY PRN PRN Reason: Constipation Olanzapine (Olanzapine 5 Mg Tablet) 5 mg PO BEDTIME FREDO Last Admin: 08/15/23 20:35 Dose: 5 mg Trazodone HCl (Trazodone Hcl 50 Mg Tablet) 50 mg PO BEDTIME MRX1 PRN PRN Reason: Insomnia Allergies Allergies Allergy/AdvReac Type Severity Reaction Status Date / Time seafood Allergy Hives Verified 05/21/23 13:02 venom-wasp Allergy Anaphylaxis Verified 07/26/23 16:26 pork derived (porcine) AdvReac Unknown Verified 05/21/23 13:02 Assessment & Plan Assessment & Plan (1) Bipolar I disorder with guido: Status: Acute Code(s): F31.10 - Bipolar disorder, current episode manic without psychotic features, unspecified (2) PTSD (post-traumatic stress disorder): Status: Acute Code(s): F43.10 - Post-traumatic stress disorder, unspecified Plan admit to m3 on CV pt signed 3 day notice collect collateral 07/29/2023: Continue current regimen and plans 07/30/2023: Continue current regimen and plans 07/30: offer olanzapine at HS. pt remains manic, with pressured speech, thought disorganization, paranoid and grandiose delusions. 07/31: refused medication last night. will discharge tomorro w, plan made. 08/01: rescinded 3-day notice and asked to remain in hospital. stated willing to take meds, accepted VPA and zyprexa this morning. 08/02: med-compliant, notably slower today, calmer, not pressured or grandiose. no s/e. continue current mgmt. 08/03: more rapid speech today and more affective expression with zyprexa dose decrease last night. no paranoid delusions expressed, however. trending improved. continue current mgmt. titrate zyprexa to 7.5 mg over w/e as indicated. 08/04 continue tx 08/05 continue tx 08/06: improved guido Sx. check labs tomorrow night. 08/07: further improved guido. check labs tonight. investigating housing options. 08/08: VPA 64.4, other labs reassuring. passed note to male staff suggesting she move in with him. increase VPA to 1250 as of tonight. planning to continue to stabilize through w/e. 08/09: continue current mgmt. remains improved, but still delusional. 08/10: grandiose delusions, euphoric. check labs monday morning. continue current mgmt. 08/11 continue same treatment improving slowly 08/12 continue same treatment, tomorrow blood 08/13 continue treatmetn blood work drawn- results pending 08/14 vpa 96.6 continue tx plan 08/15 continue tx. awaiting respite. Reason for continued inpatient stay Substantial Risk for: stable for discharge Time Spent With Patient Time: Total time managing care of this patient today ____ minutes.
[2023-08-16 20:00] VITALS: BP 102/71; PULSE 99; RESP 16; TEMP 37.2; O2SAT 99
[2023-08-16] MEDS: Divalproex Sodium 500 MG TABLET.DR 1000 MG PO (20:31)
[2023-08-16] MEDS: OLANZapine 5 MG TABLET PO (20:32)
[2023-08-16] MEDS: Divalproex Sodium 250 MG TABLET.DR PO (20:32)
[2023-08-17 07:00] VITALS: BMI 26.3
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
[2023-08-17 20:00] VITALS: BP 112/71; PULSE 86; RESP 16; TEMP 37.6; O2SAT 98
[2023-08-17] MEDS: Divalproex Sodium 250 MG TABLET.DR PO (20:02)
[2023-08-17] MEDS: Divalproex Sodium 500 MG TABLET.DR 1000 MG PO (20:02)
[2023-08-17] MEDS: OLANZapine 7.5 MG TABLET PO (20:02)
[2023-08-18 07:35] VITALS: BP 118/57; PULSE 74; RESP 16; TEMP 36.2; O2SAT 96
== END 2023-08-18 10:41 | disposition home or self-care (01) | DRG 753 ==
LOC: HO.ED 07-27 08:26 → HO.PADLT16 07-27 13:58
PROVIDERS: Admitting Provider Clinical Nurse Specialist Psychiatric/Mental Health; Emergency Provider Emergency Medicine; Visit Provider Psychiatry & Neurology Psychiatry
DX: F31.10 Bipolar disorder, current episode manic without psychotic features, unspecified (principal); F43.12 Post-traumatic stress disorder, chronic; Z20.822 Contact with and (suspected) exposure to COVID-19; Z79.899 Other long term (current) drug therapy; Z59.02 Unsheltered homelessness
CPT/HCPCS: 36415; 80048; 80053; 80061; 80076; 80164; 80307; 81001; 82140; 82607; 82746; 84439; 84443; 85025; 87086; 87635; 99285

== ENCOUNTER → 2023-07-27 13:51 | Outpatient (BNV) | payer MEDICAID, OTHER, SELFPAY | PROVIDERS: Admitting Provider Clinical Nurse Specialist Psychiatric/Mental Health; Emergency Provider Emergency Medicine; Visit Provider Clinical Nurse Specialist Psychiatric/Mental Health | DX: F31.12 Bipolar disorder, current episode manic without psychotic features, moderate (principal); F43.11 Post-traumatic stress disorder, acute | CPT/HCPCS: 90792; 99231; 99232 ==

== ENCOUNTER 2024-03-07 20:23 | Inpatient (IN) | payer OTHER, SELFPAY ==
[2024-03-07 20:44] VITALS: BP 132/90; BP 143/97; PULSE 95; PULSE 97; RESP 16; TEMP 36.7; O2SAT 95; O2SAT 99; BMI 22.0
[2024-03-07 20:52] VITALS: RESP 16
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
--- NOTE | 2024-03-07 20:57 | PC.NURSE ---
Patient adamantly reports that she does not take any medications at home. Pt also is refusing blood draw and to give a urine sample
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
--- NOTE | 2024-03-07 23:35 | PC.NURSE ---
Pt is a 43 y/o female who presents for evaluation of paranoia, delusions, and AH. Pt is calm and cooperative, independent with ADLs, and denies any SI/HI at this time. Pt is wearing a hat, reports it is for yarsani reason, and has was checked for safety upon arrival. Inpatient bed search is ongoing. will continue to monitor for any changes.
--- NOTE | 2024-03-08 01:25 | PC.NURSE ---
Pt is sleeping in bed in supine position, appears comfortable. Easily arousable with verbal stimuli. Changes positions independently as desired. Will continue to monitor for any changes.
--- NOTE | 2024-03-08 03:06 | PC.NURSE ---
Pt is sleeping in bed in supine position, talking to herself, appears comfortable. Easily arousable with verbal stimuli. Changes positions independently as desired. Q15 safety checks continue. Will continue to monitor for any changes
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
--- NOTE | 2024-03-08 06:24 | PC.NURSE ---
Pt finally fell asleep after being restless most of the shift. Does arouse with verbal stimuli. Pt exhibiting paranoia and verbal hallucinations. Bed search for inpatient care is pending. Refusing meds and labs due to islam reasons. Will continue to monitor for any changes.
[2024-03-08 06:50] VITALS: BP 147/88; PULSE 94; RESP 18; TEMP 36.9; O2SAT 99
--- NOTE | 2024-03-08 07:23 | PC.NURSE ---
Pt OOB eating breakfast at the table in her room.
--- NOTE | 2024-03-08 14:50 | PHA.MEDREC ---
Addendum entered by Jan Degroot RPh 03/08/24 14:57: Reviewed by [facility]. Original Note: Pharmacy Consult ? Medication Reconciliation Pharmacy has reviewed the medication reconciliation done by nursing.
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
[2024-03-09 19:54] VITALS: BP 150/95; PULSE 91; RESP 20; TEMP 36.6; O2SAT 98
[2024-03-10 07:56] VITALS: BP 127/82; PULSE 73; TEMP 36.9; O2SAT 98
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
[2024-03-10 20:00] VITALS: BP 128/77; PULSE 77; RESP 15; O2SAT 99
[2024-03-11 08:00] VITALS: BP 122/58; PULSE 78; RESP 16; TEMP 37.1; O2SAT 97
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
[2024-03-11 20:00] VITALS: BP 139/81; PULSE 68; TEMP 36.4; O2SAT 99
[2024-03-12 08:00] VITALS: BP 124/78; PULSE 76; RESP 16; TEMP 37.1; O2SAT 99
[2024-03-12 19:57] VITALS: BP 122/69; PULSE 74; TEMP 36.6; O2SAT 99
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
[2024-03-13 08:00] VITALS: BP 168/74; PULSE 94; TEMP 36.9; O2SAT 95
--- NOTE | 2024-03-13 11:05 | PM.PSYDC ---
DS: Providers Provider Date of Service: 03/13/24 Date of admission: 03/08/24 14:31 Date of discharge: 03/13/24 Primary care physician: Unknown Physician Admitting clinician: Olu Hummel Attending physician on admission: Olu Hummel Attending physician on discharge: Yash Torre Discharging clinician: Teena Bernard DS: Diagnosis Discharge Diagnosis (1) Bipolar affective psychosis: Status: Acute (2) PTSD (post-traumatic stress disorder): Status: Acute DS: Medications Discharge Medications Home Medications: Home Medications ?Medication ?Instructions ?Recorded ?Confirmed No Known Home Meds 03/07/24 03/07/24 Mental Status Exam Mental Status Exam Patient Appearance: Fatigued Patient Orientation: Person, Place, Time and Situation Level of Consciousness: Alert Patient Behavior: Talkative, Cooperative, Suspicious, Resistive to Care, Distractible and Good Eye Contact Mood Description: Anxious and Apprehensive Affect Description: Anxious and Apprehensive Patient Cognition Impaired: No Ability to Follow Directions: Good Speech Pattern: Spontaneous Speech and Soft-Spoken Memory Description: Intact Hallucinations: None Delusions: Paranoid Ideation Perceptual Disturbances: Depersonalization and Derealization Thought Process: Distracted and Goal Oriented Thought Content: positive for Goal Oriented, positive for Perseveration and positive for Suicidal Ideation (denies) Depressive Symptoms: Increased Anxiety Abnormal Motor Activity Signs and Symptoms: Restlessness Judgement: Fair DS: Summary Hospital Course Hospital Course: Admission to adult psychiatry for exacerbation of PTSD, Bipolar Disorder with psychosis. Pt admitted on a Section XIIB. Precipitants pt reports are discord in her housing situation with room-mates, loss of custody of her son, and ongoing discord and disagreement with her family. This is pt's third admission to [facility]. Pt refused treatment while on the unit. She declined to re-start medications. She denied SI,HI and did not present as a danger to herself due to incapacity. She was discharged upon expiration of her Section XIIB. Status at Discharge Functional status at discharge: independent ambulation Overall status at discharge: patient is back to baseline Time Spent with Patient Time attestation: Total time managing care of this patient today ____ minutes. Time spent: Less than 30 minutes Discharge Plan Discharge Anticipated Discharge Date/Time: 03/13/24 12:00 Patient Disposition: Home, Self-Care Discharge Diagnosis: Bipolar Disorder PTSD Referrals: [facility] [Other] - 3-5 Days (They can help with resources such as housing, and applying for services. ) [facility] Walk-In [Other] - 1 Week (Walk-In 10-12 M-F) [facility] Community Crisis Stabilization [Other] - 1 Week (The [facility] program delivers services as an alternative to hospital emergency departments and psychiatric hospitalization. It also offers respite, outreach, medication management, and peer-level support to ensure that your family member is taken care of on every level.) Discharge Medications: No Action No Known Home Meds Discharge Orders: Discharge Order (Routine); Ordered 03/13/24 Ordered By: Teena Bernard Diet: Advance to usual diet Activity on Discharge: As tolerated Stand Alone Forms: Patient Portal Discharge page, Community Support Print Language: Citizen Of [place] Care Plan Goals: Mood and Behavioral Stabilization Health Concerns: Mood and Behavioral Stabilization Plan of Treatment: Sridevi has declined all interventions, including meds. She leaves today on a completion of a Section XIIB. Assessment: No SI,HI, AH,VH No sx of acute guido or psychosis. Discharge Date/Time: 03/13/24 11:25
== END 2024-03-13 11:25 | disposition home or self-care (01) | DRG 753 ==
LOC: HO.ED 03-08 07:11 → HO.PM5 03-08 15:37
PROVIDERS: Admitting Provider Psychiatry & Neurology Psychiatry; Emergency Provider Internal Medicine; Visit Provider Clinical Nurse Specialist Psychiatric/Mental Health, Adult
DX: F31.9 Bipolar disorder, unspecified (principal); F43.10 Post-traumatic stress disorder, unspecified
CPT/HCPCS: 99285

== ENCOUNTER → 2024-03-08 14:31 | Outpatient (BNV) | payer OTHER, SELFPAY | PROVIDERS: Admitting Provider Psychiatry & Neurology Psychiatry; Emergency Provider Internal Medicine; Visit Provider Psychiatry & Neurology Psychiatry | DX: F31.2 Bipolar disorder, current episode manic severe with psychotic features (principal); F43.11 Post-traumatic stress disorder, acute | CPT/HCPCS: 90792; 99231 ==

== ENCOUNTER 2024-07-20 15:24 | Inpatient (IN) | payer OTHER, SELFPAY ==
[2024-07-20 15:29] VITALS: BP 168/80; PULSE 60; O2SAT 100; BMI 26.6
[2024-07-20 15:34] VITALS: BP 154/61; PULSE 104; RESP 16; TEMP 36.7; O2SAT 99
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
--- NOTE | 2024-07-20 15:59 | PC.NURSE ---
pt changed over. belongings secured in [employer] shelf 3 - 1 belongings bag of clothes and paperwork, and a black backpack with clothes in it. wallet and cell phone as well. pt agreeable to blood work. she is refusing all medications stating my body my choice . notified
[2024-07-20 16:01] LABS: MANUAL DIFF FLAG NO
[2024-07-20 16:05] LABS: Basophils Percent Auto 0.5 % (0-2); Eosinophils Absolute Auto 0.2 X10*3/uL (0.0-0.4); Eosinophils Percent Auto 2.3 % (0-4); Hematocrit 39.1 % (37.0-47.0); Hemoglobin 12.6 g/dl (12.0-16.0); Imm Gran Abs Auto 0.02 X10*3/uL (0.00-0.03); Imm Gran Pct Auto 0.2 % (0.0-0.4); Lymphocytes Absolute Auto 1.5 X10*3/uL (1.2-4.9); Lymphocytes Percent Auto 17.5 % (20-40); Mean Corpuscular HGB Conc 32.2 g/dl (31.0-35.0); Mean Corpuscular Hemoglobin 29.9 pg (27.0-33.0); Mean Corpuscular Volume 92.9 fL (80.0-98.0); Mean Platelet Volume 10.3 fL (9.4-12.3); Monocytes Absolute Auto 0.7 X10*3/uL (0.1-1.2); Monocytes Percent Auto 8.2 % (2-11); Neutrophils Absolute Auto 6.2 x10*3/uL (2.0-8.3); Neutrophils Percent Auto 71.3 % (45-73); Platelet Count 299 X10*3/uL (160-400); Red Blood Count 4.21 X10*6/uL (4.20-5.50); Red Cell Distribution Width 16.4 % (11.0-16.0); White Blood Count 8.7 X10*3/uL (4.8-10.8)
[2024-07-20 16:21] LABS: Alanine Aminotransferase 15 U/L (0-31); Albumin Level 4.1 g/dL (3.5-5.0); Anion Gap 13 (12-20); Aspartate Amino Transferase 18 U/L (5-31); Bilirubin Direct < 0.2 mg/dL (0.0-0.5); Bilirubin Total 0.2 mg/dL (0.0-1.0); Blood Urea Nitrogen 14 mg/dL (9-16); Carbon Dioxide 23 mmol/L (22-29); Chloride 110 mmol/L (96-108); Creatinine Clr Calc Pharmacy 103.4; Estimated Glomerular Filt Rate > 60; Ethanol < 10 mg/dL; Glucose Random 113 mg/dL (60-115); Sodium 142 mmol/L (135-145); Total Protein 7.2 g/dL (6.5-8.0)
[2024-07-20 16:31] LABS: Acetaminophen LAB < 3 mcg/mL (<30); Salicylate < 5.0 mg/dL (15-30)
[2024-07-20 16:32] LABS: Alkaline Phosphatase 70 U/L (39-117); HCG Quantitative < 2 mIU/mL
[2024-07-20 17:57] LABS: Amphetamine Screen Urine Not Detected (Not Detect); Barbiturates, Urine Not Detected (Not Detect); Benzodiazepines Screen Urine Not Detected (Not Detect); Buprenorphine Scr Not Detected (Not Detect); Cannabinoid Screen Urine Not Detected (Not Detect); Cocaine Screen Urine Not Detected (Not Detect); Fentanyl, urine Not Detected (Not Detect); Methadone Screen, Urine Not Detected (Not Detect); Opiate Screen Urine POSITIVE (Not Detect); Oxycodone Screen Urine Not Detected (Not Detect); Phencyclidine Screen Urine Not Detected (Not Detect)
[2024-07-20 23:42] VITALS: BP 114/76; PULSE 78; RESP 16; TEMP 36.8; O2SAT 93
--- NOTE | 2024-07-21 08:02 | PHA.MEDREC ---
Pharmacy Consult ? Medication Reconciliation Pharmacy has completed the medication reconciliation. Pt has been non compliant with meds and stopped taking some time ago to be clear headed .
[2024-07-21 10:49] VITALS: BP 141/84; PULSE 74; RESP 16; TEMP 36.7; O2SAT 98
[2024-07-21 15:23] VITALS: BP 124/74; PULSE 71; RESP 16; TEMP 36.9; O2SAT 97
--- NOTE | 2024-07-21 19:17 | PC.NURSE ---
assumed care of patient, patient has constant observation. no apparent distress noted at this time.
--- NOTE | 2024-07-21 20:07 | PC.NURSE ---
pt ambulatory to bathroom with tech, attempted to speak to patient, accusatory behavior and rambling speak at this time
[2024-07-21 21:31] VITALS: BP 134/88; PULSE 64; RESP 16; TEMP 36.8; O2SAT 98
--- NOTE | 2024-07-22 08:08 | PC.NURSE ---
pt is currently resting and talking to herself, sitter in place
[2024-07-22 08:40] VITALS: BP 126/72; PULSE 73; RESP 18; TEMP 36.7; O2SAT 98
--- NOTE | 2024-07-22 09:15 | PC.NURSE ---
pt is currently asleep, respirations even and unlabored
--- NOTE | 2024-07-22 11:08 | PC.NURSE ---
Report received, taken over care at this time.
--- NOTE | 2024-07-22 11:30 | PC.NURSE ---
Informed BH admission that pt. not providing ua sample, even after informing her about plan of admit.
--- NOTE | 2024-07-22 12:55 | PC.NURSE ---
Pt. went to pod with PATTI Pathak. Medication not needed.
--- NOTE | 2024-07-22 12:59 | PC.NURSE ---
Contacted inpatient kitchen, needs safety tray but was given a regular tray instead. Kitchen to provide new tray.
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
[2024-07-22 20:00] VITALS: BP 124/75; PULSE 98; RESP 16; TEMP 36.6; O2SAT 98
[2024-07-22 20:17] LABS: Alanine Aminotransferase 16 U/L (0-31); Albumin Level 4.2 g/dL (3.5-5.0); Alkaline Phosphatase 64 U/L (39-117); Anion Gap 12 (12-20); Aspartate Amino Transferase 15 U/L (5-31); Bilirubin Total 0.1 mg/dL (0.0-1.0); Blood Urea Nitrogen 19 mg/dL (9-16); Calcium 9.3 mg/dL (8.4-10.2); Carbon Dioxide 27 mmol/L (22-29); Chloride 108 mmol/L (96-108); Creatinine Clr Calc Pharmacy 100.7; Estimated Glomerular Filt Rate > 60; Glucose Random 80 mg/dL (60-115); Potassium 4.3 mmol/L (3.3-5.1); Sodium 143 mmol/L (135-145); Total Protein 7.1 g/dL (6.5-8.0)
[2024-07-23 07:40] VITALS: BP 112/56; PULSE 72; RESP 18; TEMP 36.8; O2SAT 95
[2024-07-23] MEDS: Nicotine Polacrilex 2 MG GUM 4 MG BUCCAL (09:15)
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
[2024-07-23 20:00] VITALS: BP 128/74; PULSE 78; RESP 16; TEMP 36.6; O2SAT 96
[2024-07-24 07:51] VITALS: BP 137/72; PULSE 71; RESP 16; TEMP 37.3; O2SAT 97
[2024-07-24 09:16] LABS: Cholesterol 193 mg/dL (<200); HDL Cholesterol 45 mg/dL (>40); LDL Cholesterol Calculated 117 mg/dL (<100); Triglycerides 159 mg/dL (<150)
[2024-07-24 09:37] LABS: Estimated Average Glucose 103 mg/dL; Hemoglobin A1C 115.9997 umol/L; Hemoglobin A1c % 5.2 % (<6.0); Total Hemoglobin (HGBA1C) 3441.8378 umol/L
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
[2024-07-24 19:25] VITALS: BP 125/75; PULSE 66; RESP 16; TEMP 36.8; O2SAT 98
[2024-07-25 08:00] VITALS: BP 121/80; PULSE 75; RESP 16; TEMP 36.8; O2SAT 98
== END 2024-07-25 10:25 | disposition home or self-care (01) | DRG 753 ==
LOC: HO.ED 07-22 12:58 → HO.PADLT16 07-22 14:07
PROVIDERS: Admitting Provider Registered Nurse; Emergency Provider Emergency Medicine; Visit Provider Psychiatry & Neurology Psychiatry
DX: F31.2 Bipolar disorder, current episode manic severe with psychotic features (principal); Z79.899 Other long term (current) drug therapy; Z87.891 Personal history of nicotine dependence
CPT/HCPCS: 36415; 80048; 80053; 80061; 80076; 80143; 80179; 80307; 83036; 83735; 84702; 85025; 99285; S9485

== ENCOUNTER → 2024-07-22 13:46 | Outpatient (BNV) | payer OTHER, SELFPAY | PROVIDERS: Admitting Provider Registered Nurse; Emergency Provider Emergency Medicine; Visit Provider Psychiatry & Neurology Psychiatry | DX: F30.9 Manic episode, unspecified (principal) | CPT/HCPCS: 90792; 99231; 99238 ==